=== PATIENT | male | born 1985 | race Caucasian/White ===

== ENCOUNTER 2021-10-12 01:58 | Emergency (ER) | payer BC ==
[2021-10-12] MEDS ORDERED: ACETAMINOPHEN 500 MG TAB ONE (02:27)
[2021-10-12 03:24] LABS: SARS-COV-2 RT PCR NEGATIVE (NEGATIVE)
--- NOTE | 2021-10-12 03:33 | EDPHYS ---
Physician Documentation [facility] Name: Ghassan Dumas Age: 36 yrs Sex: Male : 1985 Arrival Date: 10/12/2021 Time: 02:04 Bed 15 Private MD: ED Physician Dominick Esparza HPI: 10/12 02:46 This 36 yrs old Male presents to ER via Ambulatory with complaints of Cough, Headache. jr8 02:46 The patient or guardian reports cough, that is intermittent, described as mild. Onset: jr8 The symptoms/episode began/occurred acutely, today. Severity of symptoms: At their worst the symptoms were moderate, in the emergency department the symptoms are unchanged. Modifying factors: The symptoms are alleviated by nothing, the symptoms are aggravated by nothing. Associated signs and symptoms: Pertinent positives: fever, headache. The patient has not experienced similar symptoms in the past. The patient has not recently seen a physician. Historical: - Allergies: 02:12 No Known Allergies; lg3 - Home Meds: 02:12 trazodone 100 mg Oral tab 1 tab once daily [Active]; losartan 50 mg oral tab 1 tab once lg3 daily [Active]; - PMHx: 02:12 hypertension; Sleep apnea; lg3 - PSHx: 02:12 None; lg3 - Immunization history:: Adult Immunizations up to date, Client reports having NOT received the Covid vaccine. - Social history:: Smoking status: Patient reports the use of cigarette tobacco products, smokes one-half pack cigarettes per day, Patient uses alcohol, weekly. ROS: 02:46 Constitutional: Positive for body aches, chills, fever. jr8 02:46 Respiratory: Positive for cough, Negative for dyspnea on exertion, shortness of breath, sputum production, wheezing. 02:46 Neuro: Positive for headache. 02:46 All other systems are negative. Exam: 02:46 Constitutional: This is a well developed, well nourished patient who is awake, alert, jr8 and in no acute distress. 02:46 ENT: Nares patent. No nasal discharge, no septal abnormalities noted. Tympanic membranes are normal and external auditory canals are clear. Oropharynx with no redness, swelling, or masses, exudates, or evidence of obstruction, uvula midline. Mucous membranes moist. Neck: Trachea midline, no thyromegaly or masses palpated, and no cervical lymphadenopathy. Supple, full range of motion without nuchal rigidity, or vertebral point tenderness. No Meningismus. Respiratory: Lungs have equal breath sounds bilaterally, clear to auscultation and percussion. No rales, rhonchi or wheezes noted. No increased work of breathing, no retractions or nasal flaring. Abdomen/GI: Soft, non-tender, with normal bowel sounds. No distension or tympany. No guarding or rebound. No evidence of tenderness throughout. Back: No spinal tenderness. No costovertebral tenderness. Full range of motion. Skin: Warm, dry with normal turgor. Normal color with no rashes, no lesions, and no evidence of cellulitis. MS/ Extremity: Pulses equal, no cyanosis. Neurovascular intact. Full, normal range of motion. Neuro: Awake and alert, GCS 15, oriented to person, place, time, and situation. Cranial nerves II-XII grossly intact. Motor strength 5/5 in all extremities. Sensory grossly intact. 02:46 Cardiovascular: Rate: tachycardic, Rhythm: regular, Pulses: Pulses are 2+ in right radial artery and left radial artery. Heart sounds: normal, normal S1and S2, no S3 or S4, no murmur, no rub, no gallop, Edema: is not appreciated. Vital Signs: 02:08 BP 149 / 95; Pulse 102; Resp 18 S; Temp 102.8(O); Pulse Ox 97% on R/A; Weight 158.76 kg lg3 (R); Height 6 ft. 2 in. (187.96 cm) (R); Pain 0/10; 03:58 BP 129 / 71; Pulse 87; Resp 18 S; Temp 98.7; Pulse Ox 97% on R/A; al4 02:08 Body Mass Index 44.94 (158.76 kg, 187.96 cm) lg3 MDM: 02:20 Patient medically screened. jr8 02:46 Data reviewed: vital signs, nurses notes, lab test result(s), radiologic studies, plain jr8 films. Data interpreted: Pulse oximetry: on room air is 97 %. Interpretation: normal. Counseling: I had a detailed discussion with the patient and/or guardian regarding: the historical points, exam findings, and any diagnostic results supporting the discharge/admit diagnosis, lab results, radiology results, the need for outpatient follow up, a family practitioner, to return to the emergency department if symptoms worsen or persist or if there are any questions or concerns that arise at home. 10/12 02:19 Order name: Strep; Complete Time: : al4 10/12 02:20 Order name: COVID-19/FLU A+B (Document "Date of Onset" if Symptomatic); Complete Time: jr8 03:10/12 02:20 Order name: Chest Single View XRAY jr8 10/12 03:32 Order name: Throat Culture EDMS Administered Medications: : Drug: Tylenol 1000 mg Route: PO; al4 04:00 Follow up: Response: No adverse reaction; Temperature is decreased al4 Disposition: 06:43 Co-signature as Attending Physician, Dominick Esparza MD I agree with the assessment and bebeto plan of care. Disposition Summary: 10/12/21 03:32 Discharge Ordered Location: Home jr8 Problem: new jr8 Symptoms: have improved jr8 Condition: Stable jr8 Diagnosis - Viral infection, unspecified jr8 - Fever, unspecified jr8 Followup: jr8 - With: Private Physician - When: 1 week - Reason: Recheck today's complaints, Continuance of care, Re-evaluation by your physician Discharge Instructions: - Discharge Summary Sheet jr8 - Fever, Adult jr8 - Viral Respiratory Infection jr8 Forms: - Medication Reconciliation Form jr8 - Thank You Letter jr8 - Antibiotic Education jr8 - Prescription Opioid Use jr8 - Work release form vc1 Prescriptions: - promethazine-DM 6.25-15 mg/5 mL Oral syrup - take 5 milliliter by ORAL route every 4-6 hours as needed, not to exceed 30 mL jr8 in 24 hours; 120 milliliter; Refills: 0, Product Selection Permitted Signatures: Dispatcher [employer] EDDominick Brewster MD MD cha Roszak, Josh, PA PA jr8 Carmen Freire RN RN 3 Mendoza Espinal ny4
--- NOTE | 2021-10-12 03:33 | ER ---
Nurse's Notes [facility] Name: Ghassan Dumas Age: 36 yrs Sex: Male : 1985 Arrival Date: 10/12/2021 Time: 02:04 Bed 15 Private MD: Diagnosis: Viral infection, unspecified;Fever, unspecified Presentation: 10/12 02:08 Chief complaint: Patient states: started feeling bad yesterday. cough, headache, lg3 chills, thirst and weakness all day long that are progressively getting worse. Coronavirus screen: Client denies travel out of the [place] in the last 14 days. Client presents with at least one sign or symptom that may indicate coronavirus-19. Standard/surgical mask placed on the client. Ebola Screen: No symptoms or risks identified at this time. Initial Sepsis Screen: Does the patient meet any 2 criteria? Temp <36.0*C (96.8*F)) or > 38.3*C (100.9*F). Yes Does the patient have a suspected source of infection? No. Patient's initial sepsis screen is negative. Risk Assessment: Do you want to hurt yourself or someone else? Patient reports no desire to harm self or others. Onset of symptoms was October 11, 2021. 02:08 Method Of Arrival: Ambulatory lg3 02:08 Acuity: ROLAND 3 lg3 Triage Assessment: 02:12 Headache History: Denies prior headaches. General: Appears in no apparent distress. lg3 uncomfortable, Behavior is calm, cooperative. Pain: Complains of pain in headache Pain currently is 2 out of 10 on a pain scale. Pain began 1 day ago. Also complains of no other associated symptoms. EENT: No deficits noted. No signs and/or symptoms were reported regarding the EENT system. Neuro: No deficits noted. Level of Consciousness is awake, alert, obeys commands, Oriented to person, place, time, situation. Cardiovascular: No deficits noted. Denies chest pain, shortness of breath, Capillary refill < 3 seconds Clubbing of nail beds is absent JVD is absent Patient's skin is warm and dry. Respiratory: No deficits noted. Reports cough that is Airway is patent Trachea midline Respiratory effort is even, unlabored, Respiratory pattern is regular, symmetrical. GI: No deficits noted. No signs and/or symptoms were reported involving the gastrointestinal system. Abdomen is round non-distended. : No deficits noted. No signs and/or symptoms were reported regarding the genitourinary system. Derm: No deficits noted. No signs and/or symptoms reported regarding the dermatologic system. Skin is intact, is healthy with good turgor, Skin is dry. Musculoskeletal: No deficits noted. No signs and/or symptoms reported regarding the musculoskeletal system. Circulation, motion, and sensation intact. Range of motion: intact in all extremities. Historical: - Allergies: 02:12 No Known Allergies; lg3 - Home Meds: 02:12 trazodone 100 mg Oral tab 1 tab once daily [Active]; losartan 50 mg oral tab 1 tab once lg3 daily [Active]; - PMHx: 02:12 hypertension; Sleep apnea; lg3 - PSHx: 02:12 None; lg3 - Immunization history:: Adult Immunizations up to date, Client reports having NOT received the Covid vaccine. - Social history:: Smoking status: Patient reports the use of cigarette tobacco products, smokes one-half pack cigarettes per day, Patient uses alcohol, weekly. Screenin:15 Abuse screen: Denies threats or abuse. Denies injuries from another. Nutritional lg3 screening: No deficits noted. Tuberculosis screening: No symptoms or risk factors identified. Fall Risk None identified. Assessment: 02:29 General: Appears in no apparent distress. uncomfortable, Behavior is calm, cooperative, al4 patient states he was laying in bed and started having chills, body aches, headache, and sweats. Pain: Complains of pain in generalized Pain began 1 day ago. Neuro: Level of Consciousness is awake, alert, obeys commands, Oriented to person, place, time, situation. Cardiovascular: Capillary refill < 3 seconds Patient's skin is warm and dry. Respiratory: Airway is patent Respiratory effort is unlabored, Respiratory pattern is regular. Musculoskeletal: Circulation, motion, and sensation intact. 03:59 Reassessment: Patient and/or family updated on plan of care and expected duration. Pain al4 level reassessed. Patient is alert, oriented x 3, equal unlabored respirations, skin warm/dry/pink. Vital Signs: 02:08 BP 149 / 95; Pulse 102; Resp 18 S; Temp 102.8(O); Pulse Ox 97% on R/A; Weight 158.76 kg lg3 (R); Height 6 ft. 2 in. (187.96 cm) (R); Pain 0/10; 03:58 BP 129 / 71; Pulse 87; Resp 18 S; Temp 98.7; Pulse Ox 97% on R/A; al4 02:08 Body Mass Index 44.94 (158.76 kg, 187.96 cm) lg3 ED Course: 02:04 Patient arrived in ED. kz 02:12 Triage completed. lg3 02:12 Arm band placed on left wrist. lg3 02:20 Rogelio Castañeda PA is PHCP. jr8 02:20 Dominick Esparza MD is Attending Physician. jr8 02:27 COVID-19/FLU A+B (Document "Date of Onset" if Symptomatic) Sent. al4 02:27 Strep Sent. al4 02:30 Mendoza Espinal is Primary Nurse. al4 02:30 Bed in low position. al4 02:36 Chest Single View XRAY In Process Unspecified. EDMS 03:59 No provider procedures requiring assistance completed. Patient did not have IV access al4 during this emergency room visit. Administered Medications: 02:28 Drug: Tylenol 1000 mg Route: PO; al4 04:00 Follow up: Response: No adverse reaction; Temperature is decreased al4 Outcome: 03:32 Discharge ordered by . jr8 03:59 Discharged to home ambulatory. al4 03:59 Condition: stable 03:59 Discharge instructions given to patient, Instructed on discharge instructions, follow up and referral plans. medication usage, Demonstrated understanding of instructions, follow-up care, medications. 04:00 Patient left the ED. al4 Signatures: Dispatcher [employer] EDNC Rogelio Castañeda PA PA jr8 Carmen Freire, RN RN lg3 Mendoza Espinal al4 Grace Ordoñez k
[2021-10-12 04:15] VITALS: O2SAT 97
[2021-10-12 04:17] VITALS: BP 129/71; TEMP 98.7
--- NOTE | 2021-10-12 09:41 | RAD REPORT ---
EXAM DESCRIPTION: RAD - Chest Single View - 10/12/2021 2:34 am CLINICAL HISTORY: 36 years, Male, Cough;Fever COMPARISON: None. FINDINGS: Single view of the chest was obtained portable. No prior films are available for compariso n. The cardiomediastinal silhouette demonstrate to be unremarkable. The heart is not enlarged. Th e thoracic aorta is unremarkable. The pulmonary vasculature is normal distribution. Costophrenic angl es are sharp. No areas of consolidation or masses are seen. The rest of the soft tissue and bony structures demonstrate to be unremarkable. IMPRESSION: NO ACUTE CARDIOPULMONARY DISEASE SEEN. Electronically signed by: Joseph Durham MD 10/12/2021 2:52 AM CDT Due to temporary technical issues with the PACS/Fluency reporting system, reports are being signed by the in house radiologist without review as a courtesy to ensure prompt reporting. The interpreting r adiologist is fully responsible for the content of the report.
== END 2021-10-12 04:00 | disposition home or self-care (01) ==
LOC: ER 01:58
DX: B34.9 Viral infection, unspecified (principal); I10 Essential (primary) hypertension; F17.210 Nicotine dependence, cigarettes, uncomplicated; Z20.822 Contact with and (suspected) exposure to COVID-19
CPT/HCPCS: 87070; 87081; 0240U; 71045; 99283

== ENCOUNTER 2021-11-19 23:09 | Emergency (ER) | payer BC ==
--- OUTSIDE RECORDS SUMMARY | 2021-11-19 23:12 | XMS REPORT | Continuity of Care Document ---
:1985 Author Organization [facility] t Address [address] [place] [address] Dr. Mcmahon [address] [place] [id number] Care Team Providers Name Role Phone VEE Attending Clinician Unavailable Juancho Montemayor Attending Clinician [phone] SIM_Arturo Admitting Clinician Unavailable Payers Payer Name Policy Type Policy Number Effective Date Expiration Date Nader kilpatrick [place] [id number] 2020 00:00:00 [place] Problems This patient has no known problems. Allergies, Adverse Reactions, Alerts This patient has no known allergies or adverse reactions. Medications This patient has no known medications. Procedures This patient has no known procedures. Encounters Start End Encounter Admission Attending Care Care Encounter Source Date/Time Date/Time Type Type Clinicians Facility Department ID 2020-08-15 2020-08-15 Outpatient ERICKSON_R [facility] 1005 NPI:[id number] 11:44:00 11:44:00 [id number] 2020-08-09 2020-08-09 Outpatient ERICKSON_R [facility] 1006 NPI:[id number] 05:15:00 05:15:00 [id number] 2020-08-09 2020-08-09 Outpatient Sim, [facility] [id number] 00:00:00 00:00:00 Jerome [id number] Juancho [id number] 2020-08-05 2020-08-05 Outpatient ERICKSON_R [facility] 1006 NPI:[id number] 03:59:00 03:59:00 [id number] Results This patient has no known results.
[2021-11-20 02:55] LABS: Absolute Lymphocytes (CBC) 3.3 K/uL (0.7-4.9); Hematocrit 44.4 % (39.6-49.0); Lymphocytes % 33.9 % (15.3-44.8); MPV 7.3 fL (7.6-11.3); RBC Red Blood Cell Count 4.96 M/uL (4.33-5.43)
[2021-11-20 03:05] LABS: Bilirubin Total 0.3 mg/dL (0.2-1.0); Potassium 3.9 mmol/L (3.5-5.1); Protein, Total 7.6 g/dL (6.4-8.2)
[2021-11-20 03:37] LABS: Urine Blood Negative (Negative); Urine Glucose Negative (Negative); Urine Protein Negative (Negative); Urine Specific Gravity >=1.030 (1.005-1.030)
[2021-11-20] MEDS ORDERED: MORPHINE 4 MG/ML SYR ONE (03:49)
[2021-11-20] MEDS ORDERED: NA CHLORIDE 0.9% 1,000 ML ONE (03:49)
[2021-11-20] MEDS ORDERED: ONDANSETRON 4 MG/2 ML VIAL ONE (03:49)
--- NOTE | 2021-11-20 06:15 | ER ---
Nurse's Notes [facility] Name: Ghassan Dumas Age: 36 yrs Sex: Male : 1985 Arrival Date: 11/19/2021 Time: 23:16 Bed 13 Private MD: Diagnosis: Lower abdominal pain, unspecified;Flank Pain Presentation: 11/19 23:41 Chief complaint: Patient states: he is having left flank pain intermittently since bb Saturday which is getting worse. Coronavirus screen: At this time, the client does not indicate any symptoms associated with coronavirus-19. Ebola Screen: No symptoms or risks identified at this time. Initial Sepsis Screen: Does the patient meet any 2 criteria? No. Patient's initial sepsis screen is negative. Does the patient have a suspected source of infection? No. Patient's initial sepsis screen is negative. Risk Assessment: Do you want to hurt yourself or someone else? Patient reports no desire to harm self or others. Onset of symptoms was November 17, 2021. 23:41 Method Of Arrival: Ambulatory bb 23:41 Acuity: ROLAND 3 bb Triage Assessment: 23:42 General: Appears in no apparent distress. uncomfortable, Behavior is calm, cooperative. bb Pain: Complains of pain in left flank Pain currently is 5 out of 10 on a pain scale. Neuro: Level of Consciousness is awake, alert, obeys commands, Oriented to person, place, time, situation. Cardiovascular: Capillary refill < 3 seconds Patient's skin is warm and dry. Respiratory: Respiratory effort is even, unlabored, Respiratory pattern is regular. GI: Abdomen is non-distended, Reports left flank pain. : No signs and/or symptoms were reported regarding the genitourinary system. Derm: Skin is pink, warm \T\ dry. Musculoskeletal: Circulation, motion, and sensation intact. Historical: - Allergies: 23:42 No Known Allergies; bb - Home Meds: 23:42 losartan 50 mg Oral tab 1 tab once daily [Active]; trazodone 100 mg Oral tab 1 tab once bb daily [Active]; testosterone [Active]; - PMHx: 23:42 Hypertension; Sleep Apnea; bb - PSHx: 23:42 None; bb - Immunization history:: Client reports having NOT received the Covid vaccine. - Social history:: Smoking status: Patient reports the use of cigarette tobacco products. Screenin/09 02:09 Abuse screen: Denies threats or abuse. Denies injuries from another. Nutritional kd3 screening: No deficits noted. Tuberculosis screening: No symptoms or risk factors identified. Fall Risk None identified. Assessment: 02:10 GI: Bowel sounds present X 4 quads. Abd is soft. kd3 02:10 General: Appears in no apparent distress. Behavior is calm, cooperative. Pain: kd3 Complains of pain in right upper quadrant. Pain: Complains of pain in right lower quadrant. Neuro: Level of Consciousness is awake, alert, obeys commands, Oriented to person, place, time, situation. Cardiovascular: Patient's skin is warm and dry. 03:52 Reassessment: Patient and/or family updated on plan of care and expected duration. Pain bb level reassessed. Patient is alert, oriented x 3, equal unlabored respirations, skin warm/dry/pink. awaiting CT scan IV site intact, patent with fluids infusing. 05:13 Reassessment: Patient is alert, oriented x 3, equal unlabored respirations, skin bb warm/dry/pink. pt states morphine helped for a little while but pain is going back up now 7 or 8/10. 06:25 Reassessment: Patient is alert, oriented x 3, equal unlabored respirations, skin bb warm/dry/pink. pt verbalized understanding of and agrees to plan of care discharge instructions given pt ambulated with steady gait to exit. Vital Signs: 11/19 23:41 BP 100 / 89; Pulse 73; Resp 16 S; Temp 98.1(O); Pulse Ox 99% on R/A; Weight 154.22 kg bb (R); Height 6 ft. 3 in. (190.50 cm) (R); Pain 5/10; 11/20 02:11 BP 153 / 99; Pulse 84; Resp 19; Pulse Ox 100% on R/A; kd3 02:26 BP 120 / 78; kd3 02:40 BP 121 / 71; Pulse 82; Resp 16; Pulse Ox 99% on R/A; kd3 03:52 BP 126 / 90; Pulse 78; Resp 16 S; Pulse Ox 97% on R/A; bb 05:14 BP 108 / 64; Pulse 89; Resp 16 S; Pulse Ox 98% on R/A; Pain 8/10; bb 05:40 BP 112 / 56; Pulse 72; Resp 17; Pulse Ox 99% on R/A; kd3 06:25 BP 104 / 46; Pulse 70; Resp 16 S; Pulse Ox 97% on R/A; bb 11/19 23:41 Body Mass Index 42.50 (154.22 kg, 190.50 cm) bb ED Course: 11/19 23:16 Patient arrived in ED. kz 23:42 Triage completed. bb 23:42 Arm band placed on Patient placed in waiting room, Patient notified of wait time. bb 11/20 00:25 Inserted saline lock: 20 gauge in right antecubital area, using aseptic technique. mw2 Blood collected. 02:09 Sanjana Tinajero, RN is Primary Nurse. kd3 02:09 Patient has correct armband on for positive identification. Placed in gown. kd3 02:59 Anselmo Griffith MD is Attending Physician. 7 04:30 CT Abd/Pelvis - IV Contrast Only In Process Unspecified. EDMS 06:26 No provider procedures requiring assistance completed. IV discontinued, intact, bb bleeding controlled, No redness/swelling at site. Pressure dressing applied. Administered Medications: 03:51 Drug: NS 0.9% 1000 ml Route: IV; Rate: 1000 ml; Site: right antecubital; bb 04:40 Follow up: IV Status: Completed infusion; IV Intake: 1000ml bb 03:51 Drug: Zofran (Ondansetron) 4 mg Route: IVP; Site: right antecubital; bb 04:40 Follow up: Response: No adverse reaction bb 03:52 Drug: morphine 4 mg {Note: RASS 0.} Route: IVP; Site: right antecubital; bb 04:40 Follow up: Response: No adverse reaction; RASS: Alert and Calm (0) bb Intake: 04:40 IV: 1000ml; Total: 1000ml. bb Outcome: 06:14 Discharge ordered by . 7 06:26 Discharged to home ambulatory. bb 06:26 Condition: stable 06:26 Discharge instructions given to patient, Instructed on discharge instructions, follow up and referral plans. medication usage, Demonstrated understanding of instructions, follow-up care, medications, Prescriptions given X 1. 06:26 Patient left the ED. bb Signatures: Dispatcher [facility] Diamond Restrepo, RN RN bb Milo, Keysha mw2 Anselmo Griffith MD MD mh7 Sanjana Tinajero RN RN kd3 Grace Ordoñez
--- NOTE | 2021-11-20 06:15 | EDPHYS ---
Physician Documentation [facility] Name: Ghassan Dumas Age: 36 yrs Sex: Male : 1985 Arrival Date: 11/19/2021 Time: 23:16 Bed 13 Private MD: ED Physician Anselmo Griffith HPI: 11/20 03:30 This 36 yrs old Male presents to ER via Ambulatory with complaints of Abdominal Pain. mh7 03:30 The patient presents with abdominal pain right lower quadrant. Onset: The mh7 symptoms/episode began/occurred 3 day(s) ago. The symptoms radiate to the right flank. 03:30 Associated signs and symptoms: Pertinent negatives: nausea, vomiting, and diarrhea, mh7 anorexia, blood in stools, chest pain, constipation, diarrhea, dysuria, fever, headache, hematuria, nausea, palpitations, shortness of breath, testicular pain, vomiting, vomiting blood. 03:30 The symptoms are described as intermittent, vague, waxing/waning. Modifying factors: mh7 The symptoms are alleviated by nothing, the symptoms are aggravated by movement, touching the area. Severity of pain: At its worst the pain was moderate 3 day(s) ago, in the emergency department the pain has improved moderately. Historical: - Allergies: 11/19 23:42 No Known Allergies; bb - Home Meds: 23:42 losartan 50 mg Oral tab 1 tab once daily [Active]; trazodone 100 mg Oral tab 1 tab once bb daily [Active]; testosterone [Active]; - PMHx: 23:42 Hypertension; Sleep Apnea; bb - PSHx: 23:42 None; bb - Immunization history:: Client reports having NOT received the Covid vaccine. - Social history:: Smoking status: Patient reports the use of cigarette tobacco products. ROS: 11/20 03:30 Constitutional: Negative for fever, chills, and weight loss, Eyes: Negative for injury, mh7 pain, redness, and discharge, ENT: Negative for injury, pain, and discharge, Neck: Negative for injury, pain, and swelling, Cardiovascular: Negative for chest pain, palpitations, and edema, Respiratory: Negative for shortness of breath, cough, wheezing, and pleuritic chest pain, : Negative for injury, bleeding, discharge, and swelling, MS/Extremity: Negative for injury and deformity, Skin: Negative for injury, rash, and discoloration, Neuro: Negative for headache, weakness, numbness, tingling, and seizure, Psych: Negative for depression, anxiety, suicide ideation, homicidal ideation, and hallucinations, Allergy/Immunology: Negative for hives, rash, and allergies, Endocrine: Negative for neck swelling, polydipsia, polyuria, polyphagia, and marked weight changes, Hematologic/Lymphatic: Negative for swollen nodes, abnormal bleeding, and unusual bruising. Exam: 03:30 Head/Face: Normocephalic, atraumatic. Eyes: Pupils equal round and reactive to light, mh7 extra-ocular motions intact. Lids and lashes normal. Conjunctiva and sclera are non-icteric and not injected. Cornea within normal limits. Periorbital areas with no swelling, redness, or edema. Neck: Trachea midline, no thyromegaly or masses palpated, and no cervical lymphadenopathy. Supple, full range of motion without nuchal rigidity, or vertebral point tenderness. No Meningismus. Chest/axilla: Normal chest wall appearance and motion. Nontender with no deformity. No lesions are appreciated. Cardiovascular: Regular rate and rhythm with a normal S1 and S2. No gallops, murmurs, or rubs. Normal PMI, no JVD. No pulse deficits. Respiratory: Lungs have equal breath sounds bilaterally, clear to auscultation and percussion. No rales, rhonchi or wheezes noted. No increased work of breathing, no retractions or nasal flaring. 03:30 Skin: Warm, dry with normal turgor. Normal color with no rashes, no lesions, and no evidence of cellulitis. MS/ Extremity: Pulses equal, no cyanosis. Neurovascular intact. Full, normal range of motion. Neuro: Awake and alert, GCS 15, oriented to person, place, time, and situation. Cranial nerves II-XII grossly intact. Motor strength 5/5 in all extremities. Sensory grossly intact. Cerebellar exam normal. Normal gait. Psych: Awake, alert, with orientation to person, place and time. Behavior, mood, and affect are within normal limits. 03:30 Constitutional: The patient appears in no acute distress, alert, awake, uncomfortable. 03:30 Abdomen/GI: Inspection: obese Bowel sounds: normal, in all quadrants, Palpation: moderate abdominal tenderness, in the right lower quadrant, mass, is not appreciated, rebound tenderness, is not appreciated, voluntary guarding, is not appreciated, involuntary guarding, is not appreciated, no appreciated organomegaly, Rectal exam: the exam is deferred, because of patient request, Indicators: McBurney's point is not tender, Whitfield's sign is negative, Rovsing's sign is negative, Obturator sign is negative, Psoas sign is negative, Liver: no appreciated palpable abnormalities, Hernia: not appreciated. 03:30 Back: normal spinal alignment noted, CVA tenderness, that is mild, is noted on the right, muscle spasm, is not present. Vital Signs: 11/19 23:41 BP 100 / 89; Pulse 73; Resp 16 S; Temp 98.1(O); Pulse Ox 99% on R/A; Weight 154.22 kg bb (R); Height 6 ft. 3 in. (190.50 cm) (R); Pain 5/10; 11/20 02:11 BP 153 / 99; Pulse 84; Resp 19; Pulse Ox 100% on R/A; kd3 02:26 BP 120 / 78; kd3 02:40 BP 121 / 71; Pulse 82; Resp 16; Pulse Ox 99% on R/A; kd3 03:52 BP 126 / 90; Pulse 78; Resp 16 S; Pulse Ox 97% on R/A; bb 05:14 BP 108 / 64; Pulse 89; Resp 16 S; Pulse Ox 98% on R/A; Pain 8/10; bb 05:40 BP 112 / 56; Pulse 72; Resp 17; Pulse Ox 99% on R/A; kd3 06:25 BP 104 / 46; Pulse 70; Resp 16 S; Pulse Ox 97% on R/A; bb 11/19 23:41 Body Mass Index 42.50 (154.22 kg, 190.50 cm) bb MDM: 06:12 Differential diagnosis: appendicitis, bowel obstruction, diverticulitis, non-specific mh7 abd pain, Pyelonephritis, Ureterolithiasis, urinary tract infection, musculoskeletal pain. Data reviewed: vital signs, nurses notes, lab test result(s), CBC, electrolytes, urinalysis, radiologic studies, CT scan. Data interpreted: Pulse oximetry: on room air is 99 %. Interpretation: normal. Counseling: I had a detailed discussion with the patient and/or guardian regarding: the historical points, exam findings, and any diagnostic results supporting the discharge/admit diagnosis, lab results, radiology results, the need for outpatient follow up, to return to the emergency department if symptoms worsen or persist or if there are any questions or concerns that arise at home. Response to treatment: the patient's symptoms have resolved after treatment, the patient's blood pressure is in an acceptable range, mental status has returned to baseline, the patient no longer shows bradycardia, the patient is not short of breath, the patient is not tachycardic, the patient's pain is gone, the patient's temperature has normalized, the patient is now symptom free. 06:14 Patient medically screened. [facility] 11/20 02:17 Order name: CBC with Diff; Complete Time: 03:24 mw2 11/20 02:17 Order name: CMP; Complete Time: 03:24 mw2 11/20 02:17 Order name: Lipase; Complete Time: 03:24 mw2 11/20 03:37 Order name: Urine Dipstick-Ancillary; Complete Time: 03:39 EDMS 11/20 03:40 Order name: CT Abd/Pelvis - IV Contrast Only [facility] 11/20 02:17 Order name: IV Saline Lock; Complete Time: 02:37 mw2 11/20 02:17 Order name: Labs collected and sent; Complete Time: 02:37 mw2 11/20 02:17 Order name: Urine Dipstick-Ancillary (obtain specimen); Complete Time: 02:37 mw2 Administered Medications: 03:51 Drug: NS 0.9% 1000 ml Route: IV; Rate: 1000 ml; Site: right antecubital; bb 04:40 Follow up: IV Status: Completed infusion; IV Intake: 1000ml bb 03:51 Drug: Zofran (Ondansetron) 4 mg Route: IVP; Site: right antecubital; bb 04:40 Follow up: Response: No adverse reaction bb 03:52 Drug: morphine 4 mg {Note: RASS 0.} Route: IVP; Site: right antecubital; bb 04:40 Follow up: Response: No adverse reaction; RASS: Alert and Calm (0) bb Disposition Summary: 11/20/21 06:14 Discharge Ordered Location: Home [facility] Problem: new mh7 Symptoms: have improved mh7 Condition: Stable mh7 Diagnosis - Lower abdominal pain, unspecified [facility] - Flank Pain [facility] Followup: [facility] - With: Private Physician - When: 1 - 2 days - Reason: If symptoms return, Worsening of condition, Recheck today's complaints, Continuance of care, Re-evaluation by your physician Discharge Instructions: - Discharge Summary Sheet [facility] - Abdominal Pain, Adult, [id number] [facility] - Flank Pain, Adult, [id number] [facility] - Form - Excuse from Work, School, or Physical Activity [facility] Forms: - Work release form bb - Medication Reconciliation Form [facility] - Thank You Letter [facility] - Antibiotic Education [facility] - Prescription Opioid Use [facility] Prescriptions: - Ibuprofen 800 mg Oral Tablet - take 1 tablet by ORAL route every 8 hours As needed take with food; 15 tablet; [facility] Refills: 0, Product Selection Permitted Signatures: Dispatcher [employer] Diamond Restrepo RN RN bb Keysha Pedraza 2 Anselmo Griffith MD MD [facility]
[2021-11-20 06:38] VITALS: TEMP 98.1
[2021-11-20 06:47] VITALS: BP 104/46; O2SAT 97
--- NOTE | 2021-11-20 13:28 | RAD REPORT ---
EXAM DESCRIPTION: CT - Abdomen Pelvis W Contrast - 11/20/2021 6:45 am CLINICAL HISTORY: The patient is 36 years old and is Male; Abdominal pain, acute TECHNIQUE: Axial computed tomography images of the abdomen and pelvis with intravenous contrast. S agittal and coronal reformatted images were created and reviewed. This CT exam was performed using one or more of the following dose reduction techniques: automated exposure control, adjustment of t he mA and/or kV according to patient size, and/or use of iterative reconstruction technique. COMPARISON: No relevant prior studies available. FINDINGS: Lung bases: Unremarkable. No mass. No consolidation. ABDOMEN: Liver: Unremarkable. No mass. Gallbladder and bile ducts: Unremarkable. No calcified stones. No ductal dilation. Pancreas: Unremarkable. No mass. No ductal dilation. Spleen: Unremarkable. No splenomegaly. Adrenals: Unremarkable. No mass. Kidneys and ureters: Unremarkable. No solid mass. No hydronephrosis. Stomach and bowel: Mildly distended loop of small bowel in the lower abdomen. No mucosal thickening. PELVIS: Appendix: No findings to suggest acute appendicitis. Bladder: Unremarkable. No mass. Reproductive: Unremarkable as visualized. ABDOMEN and PELVIS: Intraperitoneal space: Unremarkable. No free air. No significant fluid collection. Bones/joints: No acute fracture. No dislocation. Soft tissues: Unremarkable. Vasculature: Unremarkable. No abdominal aortic aneurysm. Lymph nodes: Unremarkable. No enlarged lymph nodes. IMPRESSION: No acute findings in the abdomen or pelvis. Electronically signed by: Jc Urrutia MD 11/20/2021 4:57 AM CDT Due to temporary technical issues with the PACS/Fluency reporting system, reports are being signed by the in house radiologist without review as a courtesy to ensure prompt reporting. The interpreting r adiologist is fully responsible for the content of the report.
== END 2021-11-20 06:26 | disposition home or self-care (01) ==
LOC: ER 23:09
DX: R10.31 Right lower quadrant pain (principal); R10.9 Unspecified abdominal pain; I10 Essential (primary) hypertension; Z72.0 Tobacco use
CPT/HCPCS: 85025; 36415; 81003; 83690; 80053; 74177; Q9967; J7030; J2405; 96361; 96374; 96375; 99284

== ENCOUNTER 2022-04-13 14:07 | Emergency (ER) | payer BC ==
[2022-04-13 15:28] LABS: Absolute Lymphocytes (CBC) 2.2 K/uL (0.7-4.9); Hematocrit 45.8 % (39.6-49.0); Lymphocytes % 27.9 % (15.3-44.8); MCV 89.9 fL (80-100); MPV 7.5 fL (7.6-11.3); RBC Red Blood Cell Count 5.09 M/uL (4.33-5.43)
--- NOTE | 2022-04-13 15:44 | RAD REPORT ---
EXAM DESCRIPTION: RAD - Chest Single View - 04/13/2022 3:37 pm CLINICAL HISTORY: Chest pain COMPARISON: Chest Single View dated 10/12/2021 FINDINGS: Lines: None. Lungs: No evidence of edema or pneumonia. Pleural: No significant pleural effusions or pneumothorax. Cardiac: The heart size is within normal limits. Mediastinum: Within normal limits. Bones: No acute fractures. Other: None IMPRESSION: No acute cardiopulmonary disease.
[2022-04-13 15:54] LABS: BUN Blood Urea Nitrogen 13 mg/dL (7-18); Bicarbonate 27 mmol/L (21-32); Glomerular Filtration Rate 99 ml/min (=/>90); Glucose Level 112 mg/dL (74-106); Sodium Level 138 mmol/L (136-145); Troponin High Sensitivity 5.1 pg/mL (<58.9)
[2022-04-13 15:56] LABS: NT PRO-BNP < 5 pg/mL (<125)
--- NOTE | 2022-04-13 16:56 | ER ---
Nurse's Notes [facility] Name: Ghassan Dumas Age: 37 yrs Sex: Male : 1985 Arrival Date: 04/13/2022 Time: 14:11 Bed 20 Private MD: Dusty Freire Diagnosis: Chest pain, unspecified Presentation: 04/13 14:34 Chief complaint: Patient states: Pt reports chest pain-reproducible and worse with deep kb3 breathing, SOB, fatigue x3 days. Coronavirus screen: Vaccine status: Patient reports being unvaccinated. Client denies travel out of the [place] in the last 14 days. Ebola Screen: Patient negative for fever greater than or equal to 101.5 degrees Fahrenheit, and additional compatible Ebola Virus Disease symptoms Patient denies exposure to infectious person. Patient denies travel to an Ebola-affected area in the 21 days before illness onset. No symptoms or risks identified at this time. Initial Sepsis Screen: Does the patient meet any 2 criteria? No. Patient's initial sepsis screen is negative. Does the patient have a suspected source of infection? No. Patient's initial sepsis screen is negative. Risk Assessment: Do you want to hurt yourself or someone else? Patient reports no desire to harm self or others. Onset of symptoms was April 10, 2022. 14:34 Method Of Arrival: Ambulatory kb3 14:34 Acuity: ROLAND 3 kb3 Triage Assessment: 14:39 General: Appears in no apparent distress. Behavior is calm, cooperative. Pain: kb3 Complains of pain in chest Pain does not radiate. Pain currently is 5 out of 10 on a pain scale. Quality of pain is described as sharp. Cardiovascular: Reports chest pain, Heart tones present Capillary refill < 3 seconds Pulses are all present. 14:49 General: Appears in no apparent distress. uncomfortable, Behavior is cooperative, eh3 appropriate for age, anxious. Pain: Complains of pain in anterior aspect of left upper chest Pain radiates to mid-sternal area Pain currently is 8 out of 10 on a pain scale. Quality of pain is described as sharp, Pain began 2-3 days ago. Is continuous, Alleviated by rest, Aggravated by increased activity. EENT: No signs and/or symptoms were reported regarding the EENT system. Neuro: Level of Consciousness is awake, alert, obeys commands, Oriented to person, place, time, situation. Cardiovascular: Reports chest pain, Capillary refill < 3 seconds Patient's skin is warm and dry. Rhythm is sinus rhythm. Respiratory: Reports shortness of breath at rest Airway is patent Respiratory effort is even, unlabored. GI: No signs and/or symptoms were reported involving the gastrointestinal system. : No signs and/or symptoms were reported regarding the genitourinary system. Derm: No signs and/or symptoms reported regarding the dermatologic system. Musculoskeletal: No signs and/or symptoms reported regarding the musculoskeletal system. Historical: - Allergies: 14:39 No Known Allergies; kb3 - Home Meds: 14:39 losartan 50 mg Oral tab 1 tab once daily [Active]; testosterone [Active]; trazodone 100 kb3 mg Oral tab 1 tab once daily [Active]; - PMHx: 14:39 Hypertension; Sleep Apnea; kb3 - PSHx: 14:39 None; kb3 - Immunization history:: Adult Immunizations up to date, Client reports having NOT received the Covid vaccine. Last tetanus immunization: unknown. - Social history:: Smoking status: Patient reports the use of cigarette tobacco products, smokes one-half pack cigarettes per day, Reported history of juuling and/or vaping. Screenin:56 Abuse screen: Denies threats or abuse. Denies injuries from another. Nutritional eh3 screening: No deficits noted. Tuberculosis screening: No symptoms or risk factors identified. Fall Risk None identified. Assessment: 14:56 Reassessment: No changes from previously documented assessment. See triage assessment. eh3 Pain: Complains of pain in anterior aspect of left upper chest Pain radiates to mid-sternal area. 15:56 Reassessment: Patient and/or family updated on plan of care and expected duration. Pain eh3 level reassessed. Patient is alert, oriented x 3, equal unlabored respirations, skin warm/dry/pink. 17:07 Reassessment: Patient appears in no apparent distress at this time. Patient and/or ss family updated on plan of care and expected duration. Pain level reassessed. Patient states feeling better. Patient states symptoms have improved. Vital Signs: 14:34 BP 140 / 93; Pulse 79; Resp 20; Temp 98.2; Pulse Ox 100% ; Weight 108.86 kg; Height 6 kb3 ft. 3 in. (190.50 cm); Pain 5/10; 14:56 BP 131 / 70; Pulse 78; Resp 14; Pulse Ox 97% on R/A; eh3 14:34 Body Mass Index 30.00 (108.86 kg, 190.50 cm) kb3 ED Course: 14:11 Patient arrived in ED. mr 14:11 Dusty Freire MD is Private Physician. mr 14:39 Triage completed. kb3 14:39 Arm band placed on right wrist. kb3 14:40 Frances Olivo FNP-C is PHCP. kb 14:40 Kaiser Mccrary MD is Attending Physician. kb 14:49 Key Hahn, JEFFERY is Primary Nurse. eh3 14:56 Patient has correct armband on for positive identification. Placed in gown. Bed in low eh3 position. Call light in reach. Side rails up X2. Client placed on continuous cardiac and pulse oximetry monitoring. NIBP monitoring applied. engine monitor on. Door closed. Noise minimized. Lights dimmed. Warm blanket given. 14:56 Patient maintains SpO2 saturation greater than 95% on room air. eh3 15:26 Basic Metabolic Panel Sent. eh3 15:26 CBC with Diff Sent. eh3 15:26 D-Dimer Sent. eh3 15:27 Magnesium Sent. eh3 15:27 NT PRO-BNP Sent. eh3 15:27 Troponin HS Sent. eh3 15:27 Inserted saline lock: 20 gauge in right antecubital area, using aseptic technique. eh3 Blood collected. 17:07 No provider procedures requiring assistance completed. IV discontinued, intact, ss bleeding controlled, No redness/swelling at site. Administered Medications: No medications were administered Medication: 17:07 VIS not applicable for this client. ss Outcome: 16:55 Discharge ordered by . kb 17:07 Discharged to home ambulatory. ss 17:07 Condition: good 17:07 Discharge instructions given to patient, Instructed on discharge instructions, follow up and referral plans. Demonstrated understanding of instructions, follow-up care. 17:08 Patient left the ED. ss Signatures: Frances Olivo FNP-C FNP-Ivan Cindy HoodPham cuevas, RN RN Key Hahn, JEFFERY RN 3 Grace Garcia RN RN kb3 Corrections: (The following items were deleted from the chart) 14:42 14:34 Chief complaint: Patient states: Pt reports chest pain, SOB, fatigue x3 days kb3 kb3
--- NOTE | 2022-04-13 16:56 | EDPHYS ---
Physician Documentation [facility] Name: Ghassan Dumas Age: 37 yrs Sex: Male : 1985 Arrival Date: 04/13/2022 Time: 14:11 Bed 20 Private MD: Dusty Freire ED Physician Kaiser Mccrary HPI: 04/14 00:09 This 37 yrs old Male presents to ER via Ambulatory with complaints of Chest Pain, kb Shortness Of Breath, Fatigue. 00:09 The patient or guardian reports chest pain that is located primarily in the anterior kb chest wall, left. The pain does not radiate. Associated signs and symptoms: Pertinent positives: shortness of breath. The chest pain is described as sharp. Duration: The patient or guardian reports a single episode, that is still ongoing, and unchanged. Modifying factors: The symptoms are alleviated by nothing. the symptoms are aggravated by nothing. Severity of pain: At its worst the pain was moderate in the emergency department the pain is unchanged. The patient has experienced similar episodes in the past, a few times. The patient has not recently seen a physician. Pt reports left sided chest pain with shortness of breath that started 3 days ago. States he had been evaluated for same pain multiple times in the past, but nothing has been found. Last visit to cardiology one year ago. Historical: - Allergies: 04/13 14:39 No Known Allergies; kb3 - Home Meds: 14:39 losartan 50 mg Oral tab 1 tab once daily [Active]; testosterone [Active]; trazodone 100 kb3 mg Oral tab 1 tab once daily [Active]; - PMHx: 14:39 Hypertension; Sleep Apnea; kb3 - PSHx: 14:39 None; kb3 - Immunization history:: Adult Immunizations up to date, Client reports having NOT received the Covid vaccine. Last tetanus immunization: unknown. - Social history:: Smoking status: Patient reports the use of cigarette tobacco products, smokes one-half pack cigarettes per day, Reported history of juuling and/or vaping. ROS: 04/14 00:08 Constitutional: Negative for fever, chills, and weight loss. kb Cardiovascular: Positive for chest pain, Negative for edema, orthopnea, palpitations, paroxysmal nocturnal dyspnea. Respiratory: Positive for shortness of breath. All other systems are negative. Exam: 04/13 17:44 Constitutional: This is a well developed, well nourished patient who is awake, alert, kb and in no acute distress. Head/Face: Normocephalic, atraumatic. ENT: Moist Mucous membranes Cardiovascular: Regular rate and rhythm with a normal S1 and S2. No gallops, murmurs, or rubs. No pulse deficits. Respiratory: Respirations even and unlabored. No increased work of breathing. Talking in full sentences Abdomen/GI: Soft, non-tender. No distention Skin: Warm, dry with normal turgor. Normal color. MS/ Extremity: Pulses equal, no cyanosis. Neurovascular intact. Full, normal range of motion. Neuro: Awake and alert, GCS 15, oriented to person, place, time, and situation. Moves all extremities. Normal gait. Psych: Awake, alert, with orientation to person, place and time. Behavior, mood, and affect are within normal limits. ECG was reviewed by the Attending Physician. Vital Signs: 14:34 BP 140 / 93; Pulse 79; Resp 20; Temp 98.2; Pulse Ox 100% ; Weight 108.86 kg; Height 6 kb3 ft. 3 in. (190.50 cm); Pain 5/10; 14:56 BP 131 / 70; Pulse 78; Resp 14; Pulse Ox 97% on R/A; eh3 14:34 Body Mass Index 30.00 (108.86 kg, 190.50 cm) kb3 MDM: 14:50 Patient medically screened. 16:55 Data reviewed: vital signs, nurses notes. Data interpreted: Pulse oximetry: on room air kb is 97 %. Interpretation: normal. 16:55 HEART Score: History: Slightly Suspicious (0), ECG: Normal (0), Age: < or = 45 years kb (0), Risk Factors: 1 or 2 risk factors (1), [Hypertension] Troponin: < or = 1 x Normal Limit (0), Total Score = 1. 04/14 00:08 Counseling: I had a detailed discussion with the patient and/or guardian regarding: the kb historical points, exam findings, and any diagnostic results supporting the discharge/admit diagnosis, lab results, radiology results, the need for outpatient follow up, a generator worker, a family practitioner, to return to the emergency department if symptoms worsen or persist or if there are any questions or concerns that arise at home. 04/13 14:57 Order name: Basic Metabolic Panel kb 04/13 14:57 Order name: CBC with Diff kb 04/13 14:57 Order name: D-Dimer kb 04/13 14:57 Order name: Magnesium kb 04/13 14:57 Order name: NT PRO-BNP kb 04/13 14:57 Order name: Troponin HS kb 04/13 14:57 Order name: XRAY Chest (1 view) kb 04/13 15:35 Order name: CBC with Automated Diff; Complete Time: 15:37 EDMS 04/13 15:38 Order name: D-Dimer; Complete Time: 15:55 EDMS 04/13 15:44 Order name: RAD; Complete Time: 15:55 EDMS 04/13 15:56 Order name: Basic Metabolic Panel; Complete Time: 16:19 EDMS 04/13 15:56 Order name: Troponin High Sensitivity; Complete Time: 16:19 EDMS 04/13 15:56 Order name: NT PRO-BNP; Complete Time: 16:19 EDMS 04/13 15:56 Order name: Magnesium; Complete Time: 16:19 EDMS 04/13 14:57 Order name: EKG; Complete Time: 14:58 kb 04/13 14:57 Order name: Cardiac monitoring; Complete Time: 14:57 kb 04/13 14:57 Order name: EKG - Nurse/Tech; Complete Time: 15:26 kb 04/13 14:57 Order name: IV Saline Lock; Complete Time: 15:26 kb 04/13 14:57 Order name: Labs collected and sent; Complete Time: 15:26 kb 04/13 14:57 Order name: O2 Per Protocol; Complete Time: 14:58 kb 04/13 14:57 Order name: O2 Sat Monitoring; Complete Time: 14:58 kb EC/30 17:44 Rate is 80 beats/min. Rhythm is regular. QRS [place] is Normal. [place] interval is normal at kb 166 msec. QRS interval is normal at 92 msec. QT interval is normal at 424 msec. Administered Medications: No medications were administered Disposition: 19:02 Co-signature as Attending Physician, Kaiser Mccrary MD I agree with the assessment and kdr plan of care. Disposition Summary: 04/13/22 16:55 Discharge Ordered Location: Home kb Condition: Stable kb Diagnosis - Chest pain, unspecified kb Followup: kb - With: Emergency Department - When: As needed - Reason: Worsening of condition Followup: kb - With: Private Physician - When: 2 - 3 days - Reason: Recheck today's complaints, Continuance of care, Re-evaluation by your physician Discharge Instructions: - Discharge Summary Sheet kb - Nonspecific Chest Pain, Adult, [id number] kb Forms: - Medication Reconciliation Form kb - Thank You Letter kb - Antibiotic Education kb - Prescription Opioid Use kb - Work release form ss Signatures: Dispatcher [employer] EDMS Frances Olivo, KILN REMOVER-C KILN REMOVER-Kaiser Arias MD MD kdr Bradberry, Kelly, RN RN kb3
[2022-04-14 06:17] VITALS: TEMP 98.2
[2022-04-14 06:18] VITALS: BP 131/70; O2SAT 97
--- NOTE | 2022-04-16 14:17 | EKG ---
Test Date: 2022-04-13 Test Time: 14:34:28 Food And Nutrition Services Assistant: ALP MEASUREMENT RESULTS: Intervals: Rate: 80 WI: 166 QRSD: 92 QT: 368 QTc: 424 [place]: P: 36 WI: 166 QRS: 26 T: 26 INTERPRETIVE STATEMENTS: Normal sinus rhythm Normal ECG No previous ECG available for comparison Electronically Signed On 04-16-22 14:14:15 CDT by Nikolai Rubio
== END 2022-04-13 17:08 | disposition home or self-care (01) ==
LOC: ER 14:07
DX: R07.89 Other chest pain (principal); R06.02 Shortness of breath; I10 Essential (primary) hypertension; F17.210 Nicotine dependence, cigarettes, uncomplicated
CPT/HCPCS: 36415; 71045; 80048; 83735; 83880; 84484; 85025; 85379; 93005; 99284

== ENCOUNTER 2022-06-05 17:25 | Emergency (ER) | payer BC ==
[2022-06-05] MEDS ORDERED: HYDROCODONE/APAP 10/325 TAB ONE (17:56)
[2022-06-05] MEDS ORDERED: KETOROLAC 30 MG/ML INJ ONE (17:56)
[2022-06-05 17:57] LABS: Urine Blood Negative (Negative); Urine Glucose Negative (Negative); Urine Protein Negative (Negative); Urine pH 7.5 (5.0-7.0)
--- NOTE | 2022-06-05 18:35 | ER ---
Nurse's Notes [facility] Name: Ghassan Dumas Age: 37 yrs Sex: Male : 1985 Arrival Date: 06/05/2022 Time: 17:28 Bed 17 Private MD: Dusty Freire Diagnosis: Low back pain Presentation: 06/05 17:33 Chief complaint: Patient states: Left lower back pain began three days ago. Pain ld1 migrated to midback now. Woke up today and pain is horrible. Coronavirus screen: At this time, the client does not indicate any symptoms associated with coronavirus-19. Ebola Screen: No symptoms or risks identified at this time. Initial Sepsis Screen: Does the patient meet any 2 criteria? No. Patient's initial sepsis screen is negative. Does the patient have a suspected source of infection? No. Patient's initial sepsis screen is negative. Risk Assessment: Do you want to hurt yourself or someone else? Patient reports no desire to harm self or others. Onset of symptoms was June 05, 2022. 17:33 Method Of Arrival: Ambulatory ld1 17:33 Acuity: ROLAND 3 ld1 Triage Assessment: 17:34 General: Appears in no apparent distress. comfortable, Behavior is calm, cooperative, ld1 appropriate for age. Pain: Complains of pain in low back area Pain does not radiate. Pain currently is 8 out of 10 on a pain scale. Quality of pain is described as sharp, shooting, throbbing. EENT: No signs and/or symptoms were reported regarding the EENT system. Neuro: Level of Consciousness is awake, alert, obeys commands, Oriented to person, place, time, situation. Cardiovascular: Capillary refill < 3 seconds Patient's skin is warm and dry. Respiratory: Airway is patent Respiratory effort is even, unlabored. GI: Abdomen is round non-distended. : No signs and/or symptoms were reported regarding the genitourinary system. Derm: No signs and/or symptoms reported regarding the dermatologic system. Musculoskeletal: No signs and/or symptoms reported regarding the musculoskeletal system. Historical: - Allergies: 17:34 No Known Allergies; ld1 - PMHx: 17:34 Hypertension; Sleep Apnea; ld1 - PSHx: 17:34 None; ld1 - Immunization history:: Adult Immunizations up to date, Client reports having NOT received the Covid vaccine. - Social history:: Smoking status: Patient denies any tobacco usage or history of. Patient uses alcohol, occasionally. Screenin:55 Abuse screen: Denies threats or abuse. Denies injuries from another. Nutritional bp screening: No deficits noted. Tuberculosis screening: No symptoms or risk factors identified. Fall Risk None identified. Assessment: 17:40 General: SEE TRIAGE NOTE. bp 18:55 Reassessment: PT DC HOME AMBULATORY. bp Vital Signs: 17:34 BP 161 / 93; Pulse 92; Resp 18; Temp 98.3(TE); Pulse Ox 99% on R/A; Weight 158.76 kg; ld1 Height 6 ft. 3 in. (190.50 cm); Pain 9/10; 18:55 BP 151 / 85; Pulse 87; Resp 16; Pulse Ox 99% ; bp 17:34 Body Mass Index 43.75 (158.76 kg, 190.50 cm) ld1 ED Course: 17:28 Patient arrived in ED. mr 17:28 Dusty Freire MD is Private Physician. mr 17:30 [facility]C [facility] kb 17:30 Dennis Moeller MD is Attending Physician. kb 17:32 Pancho June, JEFFERY is Primary Nurse. bp 17:34 Triage completed. ld1 17:37 Arm band placed on right wrist. ld1 18:55 Patient has correct armband on for positive identification. Bed in low position. Call bp light in reach. Side rails up X2. 18:55 No provider procedures requiring assistance completed. Patient did not have IV access bp during this emergency room visit. Administered Medications: 17:55 Drug: [place] (HYDROcodone-acetaminophen) 10 mg-325 mg 1 tabs Route: PO; bp 18:57 Follow up: Response: No adverse reaction bp 17:55 Drug: Ketorolac 30 mg Route: IM; Site: right gluteus; bp 18:57 Follow up: Response: No adverse reaction bp Medication: 18:55 VIS not applicable for this client. bp Outcome: 18:34 Discharge ordered by . kb 18:55 Discharged to home ambulatory. bp 18:55 Condition: stable 18:55 Discharge instructions given to patient, Instructed on discharge instructions, follow up and referral plans. medication usage, Demonstrated understanding of instructions, follow-up care, medications, Prescriptions given X 2. 18:57 Patient left the ED. bp Signatures: Frances Olivo, FRIDA YEUNG-Cindy Sanders Brian, RN RN bp Dorina Barron RN RN ld1
--- NOTE | 2022-06-05 18:35 | EDPHYS ---
Physician Documentation [facility] Name: Ghassan Dumas Age: 37 yrs Sex: Male : 1985 Arrival Date: 06/05/2022 Time: 17:28 Bed 17 Private MD: Dusty Freire ED Physician Dennis Moeller HPI: 06/05 18:59 This 37 yrs old Male presents to ER via Ambulatory with complaints of Back Pain. kb 18:59 The patient presents with pain that is acute. The symptoms are located in the low back. kb Onset: The symptoms/episode began/occurred 5 day(s) ago. The pain does not radiate. Associated signs and symptoms: The patient has no apparent associated signs or symptoms. The problem was sustained repetitive motion at work. Modifying factors: The patient symptoms are alleviated by nothing, the patient symptoms are aggravated by movement. Severity of symptoms: At their worst the symptoms were moderate, in the emergency department the symptoms are unchanged. The patient has not experienced similar symptoms in the past. The patient has not recently seen a physician. 19:01 Pt reports pain that began in left flank area and moved to low back. States pain kb started on Saturday. REports pain with movement. States he was on different machinery all night at work for the past few nights and it makes it worse. Denies urinary symptoms. . Historical: - Allergies: 17:34 No Known Allergies; ld1 - PMHx: 17:34 Hypertension; Sleep Apnea; ld1 - PSHx: 17:34 None; ld1 - Immunization history:: Adult Immunizations up to date, Client reports having NOT received the Covid vaccine. - Social history:: Smoking status: Patient denies any tobacco usage or history of. Patient uses alcohol, occasionally. ROS: 18:58 Constitutional: Negative for fever, chills, and weight loss. kb 18:58 Back: Positive for pain at rest, pain with movement, of the low back area and sacrum. 18:58 All other systems are negative. Exam: 18:57 Constitutional: This is a well developed, well nourished patient who is awake, alert, kb and in no acute distress. Head/Face: Normocephalic, atraumatic. ENT: Moist Mucous membranes Cardiovascular: Regular rate and rhythm with a normal S1 and S2. No gallops, murmurs, or rubs. No pulse deficits. Respiratory: Respirations even and unlabored. No increased work of breathing. Talking in full sentences Abdomen/GI: Soft, non-tender. No distention Skin: Warm, dry with normal turgor. Normal color. MS/ Extremity: Pulses equal, no cyanosis. Neurovascular intact. Full, normal range of motion. Neuro: Awake and alert, GCS 15, oriented to person, place, time, and situation. Moves all extremities. Normal gait. Psych: Awake, alert, with orientation to person, place and time. Behavior, mood, and affect are within normal limits. 18:57 Back: pain, that is moderate, of the low back area and sacrum, ROM is painful, with all movement, normal spinal alignment noted. 19:19 Neuro: Orientation: is normal, Mentation: is normal, Memory: is normal, Motor: is kb normal, Sensation: is normal, Gait: is steady. Vital Signs: 17:34 BP 161 / 93; Pulse 92; Resp 18; Temp 98.3(TE); Pulse Ox 99% on R/A; Weight 158.76 kg; ld1 Height 6 ft. 3 in. (190.50 cm); Pain 9/10; 18:55 BP 151 / 85; Pulse 87; Resp 16; Pulse Ox 99% ; bp 17:34 Body Mass Index 43.75 (158.76 kg, 190.50 cm) ld1 MDM: 17:38 Patient medically screened. kb 18:57 Data reviewed: vital signs, nurses notes. Data interpreted: Pulse oximetry: on room air kb is 99 %. Interpretation: normal. Counseling: I had a detailed discussion with the patient and/or guardian regarding: the historical points, exam findings, and any diagnostic results supporting the discharge/admit diagnosis, lab results, the need for outpatient follow up, a family practitioner, to return to the emergency department if symptoms worsen or persist or if there are any questions or concerns that arise at home. 06/05 17:57 Order name: Urine Dipstick-Ancillary; Complete Time: 17:59 EDMS 06/05 17:38 Order name: Urine Dipstick-Ancillary (obtain specimen); Complete Time: 17:59 kb Administered Medications: 17:55 Drug: [place] (HYDROcodone-acetaminophen) 10 mg-325 mg 1 tabs Route: PO; bp 18:57 Follow up: Response: No adverse reaction bp 17:55 Drug: Ketorolac 30 mg Route: IM; Site: right gluteus; bp 18:57 Follow up: Response: No adverse reaction bp Disposition: 06/06 11:07 Co-signature as Attending Physician, Dennis Moeller MD I agree with the assessment and rt plan of care. Disposition Summary: 06/05/22 18:34 Discharge Ordered Location: Home kb Condition: Stable kb Diagnosis - Low back pain kb Followup: kb - With: Private Physician - When: 2 - 3 days - Reason: Recheck today's complaints, Continuance of care, Re-evaluation by your physician Followup: kb - With: Emergency Department - When: As needed - Reason: Worsening of condition Discharge Instructions: - Discharge Summary Sheet kb - Musculoskeletal Pain kb Forms: - Medication Reconciliation Form kb - Thank You Letter kb - Antibiotic Education kb - Prescription Opioid Use kb - Work release form bd Prescriptions: - Cyclobenzaprine 10 mg Oral Tablet - take 1 tablet by ORAL route every 8 hours As needed; 15 tablet; Refills: 0, kb Product Selection Permitted - Diclofenac Sodium 75 mg Oral tablet,delayed release (DR/EC) - take 1 tablet by ORAL route 2 times per day As needed; 30 tablet; Refills: 0, kb Product Selection Permitted Signatures: Frances Olivo FNP-C FNP-Pancho Ponce, JEFFERY RN bp Dorina Barron RN RN ld1 Dennis Moeller MD MD rt
[2022-06-05 19:17] VITALS: TEMP 98.3; O2SAT 99
[2022-06-05 19:19] VITALS: BP 151/85
== END 2022-06-05 18:57 | disposition home or self-care (01) ==
LOC: ER 17:25
DX: M54.50 Low back pain, unspecified (principal); I10 Essential (primary) hypertension
CPT/HCPCS: 81003; 96372; 99283

== ENCOUNTER 2022-06-13 16:39 | Emergency (ER) | payer BC ==
[2022-06-13 17:10] LABS: Urine Blood Negative (Negative); Urine Glucose Negative (Negative); Urine Protein Negative (Negative)
[2022-06-13 17:17] LABS: Absolute Lymphocytes (CBC) 1.9 K/uL (0.7-4.9); Hematocrit 44.7 % (39.6-49.0); Lymphocytes % 16.1 % (15.3-44.8); MCV 90.7 fL (80-100); MPV 7.1 fL (7.6-11.3); RBC Red Blood Cell Count 4.92 M/uL (4.33-5.43)
[2022-06-13 17:20] LABS: Urine Crystals Unidentified Few /HPF (None Seen); Urine RBC <5 /HPF (None Seen)
[2022-06-13] MEDS ORDERED: KETOROLAC 30 MG/ML INJ ONE (17:31)
[2022-06-13 17:42] LABS: Bilirubin Total 0.6 mg/dL (0.2-1.0); Protein, Total 8.2 g/dL (6.4-8.2)
--- NOTE | 2022-06-13 18:09 | RAD REPORT ---
EXAM DESCRIPTION: [facility]Stone Protocol - 06/13/2022 5:54 pm CLINICAL HISTORY: Flank pain, kidney stone suspected COMPARISON: 11/20/2021 TECHNIQUE: CT of the abdomen and pelvis was performed without contrast. All CT scans are performed using dose optimization technique as appropriate and may include automated exposure control or mA/KV adjustment according to patient size. FINDINGS: Lower chest: No acute abnormality. Liver: Hepatic steatosis. Biliary: No biliary ductal dilatation. Stomach: No significant focal abnormality. Duodenum: No significant focal abnormality. Pancreas: No significant abnormality. Spleen: No significant abnormality. Adrenal: No suspicious lesions. Kidney/ureter: No hydronephrosis. No renal calculi. Retroperitoneum: No retroperitoneal adenopathy. Vascular: No aneurysm. Bowel: Diverticulitis of the ascending colon. No perforation or abscess.. Normal appendix. Peritoneum: No ascites or free air. Bladder: Grossly unremarkable. Reproductive: No adnexal masses. Bones: No acute fracture. Other: n/a IMPRESSION: Non perforated diverticulitis of the ascending colon. No free air or abscess. No bowel o bstruction.
[2022-06-13] MEDS ORDERED: NA CHLORIDE 0.9% 0 ML IV ONE (18:42)
[2022-06-13] MEDS ORDERED: CIPROFLOXACIN 400mg IV 400 MG/200 ML BAG IV ONE (18:42)
[2022-06-13] MEDS ORDERED: METRONIDAZOLE 500mg IVPB 500 MG/100 ML BAG IV ONE (18:42)
--- NOTE | 2022-06-13 19:28 | EDPHYS ---
Physician Documentation [facility] Name: Ghassan Dumas Age: 37 yrs Sex: Male : 1985 Arrival Date: 06/13/2022 Time: 16:41 Bed 23 Private MD: ED Physician Dennis Moeller HPI: 06/13 16:58 This 37 yrs old Male presents to ER via Ambulatory with complaints of Abdominal Pain. snw 16:58 The patient presents with abdominal pain in the right upper quadrant, right lower snw quadrant. Onset: The symptoms/episode began/occurred gradually, 4 day(s) ago, and became persistent. The symptoms do not radiate. Associated signs and symptoms: Pertinent positives: flank pain. The symptoms are described as crampy. Severity of pain: At its worst the pain was moderate severe. It is unknown whether or not the patient has had similar symptoms in the past. sees Dr. Freire, pt thought he might have a kidney infection last week so was seen here in ED, urine was clear per report. Historical: - PMHx: 16:42 Hypertension; Sleep Apnea; ll1 - Immunization history:: Client reports receiving the 2nd dose of the Covid vaccine. - Social history:: Smoking status: Patient denies any tobacco usage or history of. ROS: 16:57 Eyes: Negative for injury, pain, redness, and discharge, ENT: Negative for injury, snw pain, and discharge, Neck: Negative for injury, pain, and swelling, Cardiovascular: Negative for chest pain, palpitations, and edema, Respiratory: Negative for shortness of breath, cough, wheezing, and pleuritic chest pain, : Negative for injury, bleeding, discharge, and swelling, MS/Extremity: Negative for injury and deformity, Skin: Negative for injury, rash, and discoloration, Neuro: Negative for headache, weakness, numbness, tingling, and seizure, Psych: Negative for depression, anxiety, suicide ideation, homicidal ideation, and hallucinations. 16:57 Constitutional: Positive for body aches. 16:57 Abdomen/GI: Positive for abdominal pain. 16:57 Back: Positive for decreased range of motion, pain with movement. Exam: 16:56 Constitutional: This is a well developed, well nourished patient who is awake, alert, snw and in no acute distress. Head/Face: Normocephalic, atraumatic. Eyes: Pupils equal round and reactive to light, extra-ocular motions intact. Lids and lashes normal. Conjunctiva and sclera are non-icteric and not injected. Cornea within normal limits. Periorbital areas with no swelling, redness, or edema. ENT: Nares patent. No nasal discharge, no septal abnormalities noted. Tympanic membranes are normal and external auditory canals are clear. Oropharynx with no redness, swelling, or masses, exudates, or evidence of obstruction, uvula midline. Mucous membranes moist. Neck: Trachea midline, no thyromegaly or masses palpated, and no cervical lymphadenopathy. Supple, full range of motion without nuchal rigidity, or vertebral point tenderness. No Meningismus. Chest/axilla: Normal chest wall appearance and motion. Nontender with no deformity. No lesions are appreciated. Cardiovascular: Regular rate and rhythm with a normal S1 and S2. No gallops, murmurs, or rubs. Normal PMI, no JVD. No pulse deficits. Respiratory: Lungs have equal breath sounds bilaterally, clear to auscultation and percussion. No rales, rhonchi or wheezes noted. No increased work of breathing, no retractions or nasal flaring. 16:56 Skin: Warm, dry with normal turgor. Normal color with no rashes, no lesions, and no evidence of cellulitis. MS/ Extremity: Pulses equal, no cyanosis. Neurovascular intact. Full, normal range of motion. Neuro: Awake and alert, GCS 15, oriented to person, place, time, and situation. Cranial nerves II-XII grossly intact. Motor strength 5/5 in all extremities. Sensory grossly intact. Cerebellar exam normal. Normal gait. Psych: Awake, alert, with orientation to person, place and time. Behavior, mood, and affect are within normal limits. 16:56 Abdomen/GI: Inspection: abdomen appears normal, Bowel sounds: active, all quadrants, Palpation: moderate abdominal tenderness, in the right upper quadrant and right lower quadrant. 16:56 Back: pain, that is moderate, of the left low back, ROM is painful, normal spinal alignment noted, CVA tenderness, that is mild, is noted on the right. Vital Signs: 16:42 BP 157 / 99; Pulse 107; Resp 18; Temp 100.1; Pulse Ox 97% on R/A; Weight 158.76 kg; ll1 Height 6 ft. 3 in. (190.50 cm); Pain 10/10; 17:27 BP 129 / 73; Pulse 92; Resp 16; Pulse Ox 100% on R/A; tp1 19:15 BP 109 / 81; Pulse 81; Resp 16; Pulse Ox 100% on R/A; tp1 21:02 BP 118 / 75; Pulse 70; Resp 16; Pulse Ox 99% on R/A; tp1 16:42 Body Mass Index 43.75 (158.76 kg, 190.50 cm) ll1 MDM: 16:49 Patient medically screened. snw 19:28 Data reviewed: vital signs, nurses notes. Data interpreted: Pulse oximetry: on room air snw is 97 %. Interpretation: normal. Counseling: I had a detailed discussion with the patient and/or guardian regarding: the historical points, exam findings, and any diagnostic results supporting the discharge/admit diagnosis, the need for outpatient follow up, to return to the emergency department if symptoms worsen or persist or if there are any questions or concerns that arise at home. Special discussion: Based on the history and exam findings, there is no indication for further emergent testing or inpatient evaluation. I discussed with the patient/guardian the need to see the primary care provider for further evaluation of the symptoms. 06/13 16:49 Order name: Urine Culture snw 06/13 16:49 Order name: Urine Microscopic Only; Complete Time: 17:21 snw 06/13 16:49 Order name: CBC with Diff; Complete Time: 17:20 snw 06/13 16:49 Order name: CMP; Complete Time: 17:52 snw 06/13 16:49 Order name: Lipase; Complete Time: 17:52 snw 06/13 16:49 Order name: Flu; Complete Time: 17:35 snw 06/13 16:49 Order name: Urine Dipstick-Ancillary (obtain specimen); Complete Time: 17:34 snw 06/13 16:49 Order name: IV Saline Lock; Complete Time: 17:26 snw 06/13 16:56 Order name: CT Stone Protocol; Complete Time: 18:17 snw 06/13 17:10 Order name: Urine Dipstick-Ancillary; Complete Time: 17:13 EDMS 06/13 16:49 Order name: Labs collected and sent; Complete Time: 17:26 snw Administered Medications: 17:34 Drug: Ketorolac 30 mg Route: IVP; Site: right antecubital; tp1 19:32 Follow up: Response: Pain is unchanged, physician notified tp1 19:18 Drug: Cipro (ciprofloxacin) 400 mg Volume: 200 ml; Route: IVPB; Infused Over: 60 mins; tp1 Site: right antecubital; 20:42 Follow up: Response: No adverse reaction; IV Status: Completed infusion; IV Intake: tp1 200ml 19:42 Drug: Dilaudid (HYDROmorphone) 1 mg Route: IM; Site: left deltoid; tp1 21:03 Follow up: Response: Pain is decreased tp1 20:49 Drug: Flagyl (metroNIDAZOLE) 500 mg Volume: 100 ml; Route: IVPB; Rate: 200 ml/hr; tp1 Infused Over: 30 mins; Site: left hand; 21:33 Follow up: Response: No adverse reaction; IV Status: Completed infusion; IV Intake: tp1 100ml Disposition Summary: 06/13/22 19:28 Discharge Ordered Location: Home snw Condition: Stable snw Diagnosis - Influenza due to identified novel influenza A virus snw - Diverticulitis of intestine, part unspecified, without perforation or abscess snw without bleeding - Essential (primary) hypertension snw Followup: snw - With: Emergency Department - When: As needed - Reason: Worsening of condition Followup: snw - With: Private Physician - When: 2 - 3 days - Reason: Recheck today's complaints, Continuance of care, Re-evaluation by your physician Discharge Instructions: - Discharge Summary Sheet snw - High-Fiber Diet snw - Diverticulitis snw - Hypertension, Adult snw - Influenza, Adult snw Forms: - Work release form snw - Medication Reconciliation Form snw - Thank You Letter snw - Antibiotic Education snw - Prescription Opioid Use snw Prescriptions: - Cipro 500 mg Oral Tablet - take 1 tablet by ORAL route every 12 hours for 10 days; 20 tablet; Refills: 0, snw Product Selection Permitted - Flagyl 500 mg Oral Tablet - take 1 tablet by ORAL route every 8 hours for 10 days; 30 tablet; Refills: 0, snw Product Selection Permitted - Tramadol 50 mg Oral Tablet - take 1 tablet by ORAL route every 8 hours as needed; 12 tablet; Refills: 0, snw Product Selection Permitted Addendum: 06/18/2022 04:21 Co-signature as Attending Physician, Dennis Moeller MD I agree with the assessment and r t plan of care. Signatures: Dispatcher [employer] EDMS Dora Melendez, DAVIDC VP AD SAL[employer]nw Gerry Eli RN RN ll1 Edith Dash RN RN tp1 Dennis Moeller MD MD rt Corrections: (The following items were deleted from the chart) 06/13 19:29 19:28 Special discussion: Based on the history and exam findings, there is no snw indication for further emergent testing or inpatient evaluation. I discussed with the patient/guardian the need to see the scientific aide for further evaluation of the symptoms. snw
--- NOTE | 2022-06-13 19:28 | ER ---
Nurse's Notes [facility] Name: Ghassan Dumas Age: 37 yrs Sex: Male : 1985 Arrival Date: 06/13/2022 Time: 16:41 Bed 23 Private MD: Diagnosis: Influenza due to identified novel influenza A virus;Diverticulitis of intestine, part unspecified, without perforation or abscess without bleeding;Essential (primary) hypertension Presentation: 06/13 16:42 Chief complaint: Patient states: L back/buttocks pain for 4-5 days. Stomach pain for 2 ll1 days. Coronavirus screen: Vaccine status: Patient reports being unvaccinated. Client denies travel out of the [place] in the last 14 days. At this time, the client does not indicate any symptoms associated with coronavirus-19. Ebola Screen: Patient denies travel to an Ebola-affected area in the 21 days before illness onset. Initial Sepsis Screen: Does the patient meet any 2 criteria? HR > 90 bpm. No. Patient's initial sepsis screen is negative. Does the patient have a suspected source of infection? Yes: Acute abdominal pain. Risk Assessment: Do you want to hurt yourself or someone else? Patient reports no desire to harm self or others. Onset of symptoms was June 09, 2022. 16:42 Method Of Arrival: Ambulatory ll1 16:42 Acuity: ROLAND 3 ll1 Historical: - PMHx: 16:42 Hypertension; Sleep Apnea; ll1 - Immunization history:: Client reports receiving the 2nd dose of the Covid vaccine. - Social history:: Smoking status: Patient denies any tobacco usage or history of. Screenin:37 Abuse screen: Denies threats or abuse. Denies injuries from another. Nutritional tp1 screening: No deficits noted. Tuberculosis screening: No symptoms or risk factors identified. Fall Risk None identified. Assessment: 17:00 General: Appears in no apparent distress. uncomfortable, Behavior is calm, cooperative. tp1 Pain: Complains of pain in abdomen Pain radiates to left low back Pain currently is 10 out of 10 on a pain scale. Quality of pain is described as sharp, Is intermittent. Neuro: Level of Consciousness is awake, alert, obeys commands, Oriented to person, place, time, situation. Cardiovascular: Patient's skin is warm and dry. Respiratory: Airway is patent Respiratory effort is even, unlabored. GI: Abdomen is obese, Abd is soft and non tender Patient currently denies diarrhea, nausea, vomiting. : No signs and/or symptoms were reported regarding the genitourinary system. EENT: No signs and/or symptoms were reported regarding the EENT system. Derm: Skin is pink, warm \T\ dry. Musculoskeletal: Circulation, motion, and sensation intact. 19:19 Reassessment: Patient appears in no apparent distress at this time. No changes from tp1 previously documented assessment. Patient and/or family updated on plan of care and expected duration. Pain level reassessed. Patient is alert, oriented x 3, equal unlabored respirations, skin warm/dry/pink. continues to CO ABD pain, provider notified. 19:30 Reassessment: discharge pending completion of medication administration. tp1 20:15 Reassessment: Patient appears in no apparent distress at this time. Patient and/or tp1 family updated on plan of care and expected duration. Pain level reassessed. Patient is alert, oriented x 3, equal unlabored respirations, skin warm/dry/pink. states pain has decreased. Vital Signs: 16:42 BP 157 / 99; Pulse 107; Resp 18; Temp 100.1; Pulse Ox 97% on R/A; Weight 158.76 kg; ll1 Height 6 ft. 3 in. (190.50 cm); Pain 10/10; 17:27 BP 129 / 73; Pulse 92; Resp 16; Pulse Ox 100% on R/A; tp1 19:15 BP 109 / 81; Pulse 81; Resp 16; Pulse Ox 100% on R/A; tp1 21:02 BP 118 / 75; Pulse 70; Resp 16; Pulse Ox 99% on R/A; tp1 16:42 Body Mass Index 43.75 (158.76 kg, 190.50 cm) ll1 ED Course: 16:41 Patient arrived in ED. as 16:47 Triage completed. ll1 16:47 Arm band placed on. ll1 16:48 [facility]C [facility] snw 16:48 Dennis Moeller MD is Attending Physician. snw 16:53 Edith Dash RN is Primary Nurse. tp1 17:05 Patient has correct armband on for positive identification. Bed in low position. Call tp1 light in reach. Pulse ox on. NIBP on. 17:05 Inserted saline lock: 20 gauge in right antecubital area, using aseptic technique. tp1 Blood collected. 17:05 No provider procedures requiring assistance completed. tp1 17:56 CT Stone Protocol In Process Unspecified. EDMS 20:00 Inserted saline lock: 22 gauge in left hand, using aseptic technique. IV discontinued, tp1 intact, bleeding controlled, No redness/swelling at site. Pressure dressing applied. 21:33 IV discontinued, intact, bleeding controlled, No redness/swelling at site. Pressure tp1 dressing applied. Administered Medications: 17:34 Drug: Ketorolac 30 mg Route: IVP; Site: right antecubital; tp1 19:32 Follow up: Response: Pain is unchanged, physician notified tp1 19:18 Drug: Cipro (ciprofloxacin) 400 mg Volume: 200 ml; Route: IVPB; Infused Over: 60 mins; tp1 Site: right antecubital; 20:42 Follow up: Response: No adverse reaction; IV Status: Completed infusion; IV Intake: tp1 200ml 19:42 Drug: Dilaudid (HYDROmorphone) 1 mg Route: IM; Site: left deltoid; tp1 21:03 Follow up: Response: Pain is decreased tp1 20:49 Drug: Flagyl (metroNIDAZOLE) 500 mg Volume: 100 ml; Route: IVPB; Rate: 200 ml/hr; tp1 Infused Over: 30 mins; Site: left hand; 21:33 Follow up: Response: No adverse reaction; IV Status: Completed infusion; IV Intake: tp1 100ml Medication: 17:37 VIS not applicable for this client. tp1 Intake: 20:42 IV: 200ml; Total: 200ml. tp1 21:33 IV: 100ml; Total: 300ml. tp1 Outcome: 19:28 Discharge ordered by . didier 21:33 Discharged to home ambulatory. tp1 21:33 Condition: good 21:33 Discharge instructions given to patient, Instructed on discharge instructions, follow up and referral plans. medication usage, Demonstrated understanding of instructions, follow-up care, medications, Prescriptions given X 3. 21:34 Patient left the ED. tp1 Signatures: Dispatcher [employer] Dora Riley, GAMAL-C LITHOPRESS OPERATOR-Anne Landrum Lynsay, RN RN ll1 Edith Dash, RN RN tp1
[2022-06-13] MEDS ORDERED: HYDROMORPHONE HCL 1 MG/ML INJ ONE (19:37)
[2022-06-13 21:54] VITALS: TEMP 100.1
[2022-06-13 21:57] VITALS: BP 118/75; O2SAT 99
== END 2022-06-13 21:34 | disposition home or self-care (01) ==
LOC: ER 16:39
DX: K57.32 Diverticulitis of large intestine without perforation or abscess without bleeding (principal); J10.1 Influenza due to other identified influenza virus with other respiratory manifestations; I10 Essential (primary) hypertension; Z20.822 Contact with and (suspected) exposure to COVID-19
CPT/HCPCS: 87088; 85025; 87086; 36415; 83690; 80053; 87804 ×2; 76377; 74176; 96372; 99284; J1170; J0744; 81003; 81015

== ENCOUNTER 2022-06-18 14:02 | Emergency (ER) | payer BC ==
--- NOTE | 2022-06-18 14:47 | EDPHYS ---
Physician Documentation [facility] Name: Ghassan Dumas Age: 37 yrs Sex: Male : 1985 Arrival Date: 06/18/2022 Time: 14:09 Bed IW4 Private MD: ED Physician Kaiser Mccrary HPI: 06/18 19:57 This 37 yrs old Male presents to ER via Ambulatory with complaints of Abdominal Pain, kb Weakness. 19:57 Pt states he was here last week and diagnosed with the flu and diverticulitis. States kb he couldn't get into his PCP for follow up so he came here because he needs a note to return to work. States symptoms have resolved. Severity of symptoms: At their worst the symptoms were moderate in the emergency department the symptoms have resolved. The patient has not experienced similar symptoms in the past. The patient has been recently seen at the [facility] Emergency Department, last week. Historical: - Allergies: 14:46 No Known Allergies; jl7 - Home Meds: 14:46 losartan 50 mg oral tab [Active]; jl7 - PMHx: 14:46 Hypertension; Sleep Apnea; jl7 - PSHx: 14:46 None; jl7 - Immunization history:: Client reports having NOT received the Covid vaccine. - Social history:: Smoking status: Reported history of juuling and/or vaping. ROS: 19:57 Constitutional: Negative for fever, chills, and weight loss. kb 19:57 All other systems are negative. Exam: 19:57 Constitutional: This is a well developed, well nourished patient who is awake, alert, kb and in no acute distress. Head/Face: Normocephalic, atraumatic. ENT: Moist Mucous membranes Cardiovascular: Regular rate and rhythm with a normal S1 and S2. No gallops, murmurs, or rubs. No pulse deficits. Respiratory: Respirations even and unlabored. No increased work of breathing. Talking in full sentences Abdomen/GI: Soft, non-tender. No distention Skin: Warm, dry with normal turgor. Normal color. MS/ Extremity: Pulses equal, no cyanosis. Neurovascular intact. Full, normal range of motion. Neuro: Awake and alert, GCS 15, oriented to person, place, time, and situation. Moves all extremities. Normal gait. Vital Signs: 14:45 BP 132 / 94; Pulse 98; Resp 17; Temp 98; Pulse Ox 100% ; Weight 158.76 kg; Height 6 ft. jl7 3 in. (190.50 cm); Pain 3/10; 14:45 Body Mass Index 43.75 (158.76 kg, 190.50 cm) jl7 MDM: 14:46 Patient medically screened. kb 19:57 Data reviewed: vital signs, nurses notes. Data interpreted: Pulse oximetry: on room air kb is 100 %. Interpretation: normal. Counseling: I had a detailed discussion with the patient and/or guardian regarding: the historical points, exam findings, and any diagnostic results supporting the discharge/admit diagnosis, the need for outpatient follow up, a family practitioner, to return to the emergency department if symptoms worsen or persist or if there are any questions or concerns that arise at home. Administered Medications: No medications were administered Disposition: 06/19 10:49 Co-signature as Attending Physician, Kaiser Mccrary MD I agree with the assessment and kdr plan of care. Disposition Summary: 06/18/22 14:46 Discharge Ordered Location: Home kb Condition: Stable kb Diagnosis - Encounter for issue of other medical certificate - work note kb Followup: kb - With: Emergency Department - When: As needed - Reason: Worsening of condition Followup: kb - With: Private Physician - When: 2 - 3 days - Reason: Recheck today's complaints, Continuance of care, Re-evaluation by your physician Discharge Instructions: - Discharge Summary Sheet kb Forms: - Work release form kb - Medication Reconciliation Form kb - Thank You Letter kb - Antibiotic Education kb - Prescription Opioid Use kb Signatures: Frances Olivo, GAMAL-C GAMAL-Kaiser Arias MD MD kdr Leal, Jahala, RN RN jl7
--- NOTE | 2022-06-18 14:47 | ER ---
Nurse's Notes [facility] Name: Ghassan Dumas Age: 37 yrs Sex: Male : 1985 Arrival Date: 06/18/2022 Time: 14:09 Bed IW4 Private MD: Diagnosis: Encounter for issue of other medical certificate-work note Presentation: 06/18 14:45 Chief complaint: Patient states: Tested positive for flu a week ago, feeling better, jl7 still a little weak, following up to make sure I can go back to work. Coronavirus screen: At this time, the client does not indicate any symptoms associated with coronavirus-19. Ebola Screen: No symptoms or risks identified at this time. Initial Sepsis Screen: Does the patient meet any 2 criteria? No. Patient's initial sepsis screen is negative. Does the patient have a suspected source of infection? No. Patient's initial sepsis screen is negative. Risk Assessment: Do you want to hurt yourself or someone else? Patient reports no desire to harm self or others. Onset of symptoms is unknown. 14:45 Method Of Arrival: Ambulatory 7 14:45 Acuity: ROLAND 4 jl7 Triage Assessment: 14:46 General: Appears in no apparent distress. uncomfortable, Behavior is calm, cooperative, jl7 appropriate for age. Pain: Denies pain. GI: Patient currently denies diarrhea, nausea, vomiting. Historical: - Allergies: 14:46 No Known Allergies; jl7 - Home Meds: 14:46 losartan 50 mg oral tab [Active]; jl7 - PMHx: 14:46 Hypertension; Sleep Apnea; jl7 - PSHx: 14:46 None; jl7 - Immunization history:: Client reports having NOT received the Covid vaccine. - Social history:: Smoking status: Reported history of juuling and/or vaping. Screenin:54 Abuse screen: Denies threats or abuse. Denies injuries from another. Nutritional ss screening: No deficits noted. Tuberculosis screening: Never had TB. Fall Risk None identified. Assessment: 14:44 Reassessment: BUD Daniels in triage assessing pt. jl7 14:54 General: Appears in no apparent distress. comfortable, Behavior is calm, cooperative. ss Neuro: Level of Consciousness is awake, alert, obeys commands, Oriented to person, place, time, situation. Respiratory: Airway is patent Respiratory effort is even, unlabored. Derm: Skin is pink, warm \T\ dry. normal. Vital Signs: 14:45 BP 132 / 94; Pulse 98; Resp 17; Temp 98; Pulse Ox 100% ; Weight 158.76 kg; Height 6 ft. jl7 3 in. (190.50 cm); Pain 3/10; 14:45 Body Mass Index 43.75 (158.76 kg, 190.50 cm) jl7 ED Course: 14:09 Patient arrived in ED. as 14:42 Frances [facility]C [facility]. kb 14:42 Kaiser Mccrary MD is Attending Physician. kb 14:46 Triage completed. jl7 14:46 Arm band placed on right wrist. jl7 14:54 Patient has correct armband on for positive identification. ss 14:54 No provider procedures requiring assistance completed. Patient did not have IV access ss during this emergency room visit. Administered Medications: No medications were administered Medication: 14:44 VIS not applicable for this client. jl7 Outcome: 14:46 Discharge ordered by MD. kb 14:54 Discharged to home ambulatory. ss 14:54 Condition: good 14:54 Discharge instructions given to patient, Instructed on discharge instructions, follow up and referral plans. Demonstrated understanding of instructions, follow-up care. 14:55 Patient left the ED. ss Signatures: Frances Olivo FNP-C FNP-Anne Locke Shelby, RN RN ss Candice Baires RN RN jl7
[2022-06-18 15:38] VITALS: BP 132/94; TEMP 98; O2SAT 100
== END 2022-06-18 14:55 | disposition home or self-care (01) ==
LOC: ER 14:02
DX: Z02.79 Encounter for issue of other medical certificate (principal)
CPT/HCPCS: 99281

== ENCOUNTER 2022-07-13 20:16 | Emergency (ER) | payer BC ==
[2022-07-13 20:45] LABS: Urine Blood Negative (Negative); Urine Glucose Negative (Negative); Urine Protein Negative (Negative); Urine Specific Gravity 1.025 (1.005-1.030)
[2022-07-13] MEDS ORDERED: MORPHINE 4 MG/ML SYR ONE (20:57)
[2022-07-13] MEDS ORDERED: NA CHLORIDE 0.9% 1,000 ML ONE (20:57)
[2022-07-13] MEDS ORDERED: ONDANSETRON 4 MG/2 ML VIAL ONE (20:57)
[2022-07-13] MEDS ORDERED: FAMOTIDINE 20 MG/2 ML VIAL IV ONE (20:57)
[2022-07-13 20:58] LABS: Urine Bacteria None Seen /HPF (<20); Urine Crystals Unidentified Few /HPF (None Seen); Urine RBC <5 /HPF (None Seen); Urine WBC Clump Rare /HPF (None Seen)
[2022-07-13 21:19] LABS: Absolute Lymphocytes (CBC) 2.1 K/uL (0.7-4.9); Hematocrit 43.5 % (39.6-49.0); Lymphocytes % 31.2 % (15.3-44.8); MCV 90.2 fL (80-100); MPV 7.2 fL (7.6-11.3); RBC Red Blood Cell Count 4.82 M/uL (4.33-5.43)
[2022-07-13 21:39] LABS: Albumin 4.1 g/dL (3.4-5.0); Bilirubin Total 0.3 mg/dL (0.2-1.0); Potassium 4.1 mmol/L (3.5-5.1); Protein, Total 7.9 g/dL (6.4-8.2)
[2022-07-13] MEDS ORDERED: METRONIDAZOLE 500mg IVPB 500 MG/100 ML BAG IV ONE (22:01)
[2022-07-13] MEDS ORDERED: CIPROFLOXACIN 400mg IV 400 MG/200 ML BAG IV ONE (22:01)
--- NOTE | 2022-07-13 22:13 | RAD REPORT ---
EXAM DESCRIPTION: CT - Abdomen Pelvis W Contrast - 07/13/2022 9:59 pm CLINICAL HISTORY: Abdominal pain COMPARISON: May 2022 TECHNIQUE: Computed axial tomography of the abdomen pelvis was obtained. 100 cc Isovue-300 was admin istered intravenously. Oral contrast was not requested which limits evaluation of bowel and appendix All CT scans are performed using dose optimization technique as appropriate and may include automated exposure control or mA/KV adjustment according to patient size. FINDINGS: The liver, spleen, pancreas, adrenal and kidneys appear unremarkable. Normal appendix Diverticulum stems from the cecum. There is mild stranding within the adjacent fat compatible with di verticulitis. No abscess. No free air IMPRESSION: Mild cecal diverticulitis
--- NOTE | 2022-07-13 22:27 | EDPHYS ---
Physician Documentation [facility] Name: Ghassan Dumas Age: 37 yrs Sex: Male : 1985 Arrival Date: 07/13/2022 Time: 20:20 Bed 6 Private MD: ED Physician Dominick Esparza HPI: 07/13 20:48 This 37 yrs old Male presents to ER via Ambulatory with complaints of bebeto Abdominal Pain. 20:48 The patient presents with abdominal pain in the right upper quadrant, right lower bebeto quadrant, abdominal distention in the upper abdomen, in the lower abdomen. Onset: The symptoms/episode began/occurred 5 day(s) ago. The symptoms radiate to. Associated signs and symptoms: Pertinent positives: nausea. The symptoms are described as crampy. Modifying factors: The symptoms are alleviated by remaining still, the symptoms are aggravated by movement, pressure, touching the area. Severity of pain: At its worst the pain was moderate in the emergency department the pain has resolved. The patient has experienced a previous episode, last month. Historical: - Allergies: 20:39 No Known Allergies; vc1 - Home Meds: 20:39 losartan 50 mg Oral tab [Active]; trazodone 100 mg Oral tab 1 tab nightly for Insomnia vc1 [Active]; - PMHx: 20:39 Hypertension; Sleep Apnea; Insomnia; vc1 - PSHx: 20:39 None; vc1 - Immunization history:: Client reports having NOT received the Covid vaccine. - Social history:: Smoking status: Reported history of juuling and/or vaping. Patient/guardian denies using tobacco. - Family history:: not pertinent. ROS: 20:48 Constitutional: Negative for fever, chills, and weight loss, Eyes: Negative for injury, bebeto pain, redness, and discharge, ENT: Negative for injury, pain, and discharge, Neck: Negative for injury, pain, and swelling, Cardiovascular: Negative for chest pain, palpitations, and edema, Respiratory: Negative for shortness of breath, cough, wheezing, and pleuritic chest pain, Back: Negative for injury and pain, : Negative for injury, bleeding, discharge, and swelling, MS/Extremity: Negative for injury and deformity, Skin: Negative for injury, rash, and discoloration, Neuro: Negative for headache, weakness, numbness, tingling, and seizure, Psych: Negative for depression, anxiety, suicide ideation, homicidal ideation, and hallucinations, Allergy/Immunology: Negative for hives, rash, and allergies, Endocrine: Negative for neck swelling, polydipsia, polyuria, polyphagia, and marked weight changes, Hematologic/Lymphatic: Negative for swollen nodes, abnormal bleeding, and unusual bruising. 20:48 Abdomen/GI: Positive for abdominal pain, of the right upper quadrant and right lower quadrant. Exam: 20:48 Constitutional: This is a well developed, well nourished patient who is awake, alert, bebeto and in no acute distress. Head/Face: Normocephalic, atraumatic. Eyes: Pupils equal round and reactive to light, extra-ocular motions intact. Lids and lashes normal. Conjunctiva and sclera are non-icteric and not injected. Cornea within normal limits. Periorbital areas with no swelling, redness, or edema. ENT: Nares patent. No nasal discharge, no septal abnormalities noted. Tympanic membranes are normal and external auditory canals are clear. Oropharynx with no redness, swelling, or masses, exudates, or evidence of obstruction, uvula midline. Mucous membranes moist. Neck: Trachea midline, no thyromegaly or masses palpated, and no cervical lymphadenopathy. Supple, full range of motion without nuchal rigidity, or vertebral point tenderness. No Meningismus. Chest/axilla: Normal chest wall appearance and motion. Nontender with no deformity. No lesions are appreciated. Cardiovascular: Regular rate and rhythm with a normal S1 and S2. No gallops, murmurs, or rubs. Normal PMI, no JVD. No pulse deficits. Respiratory: Lungs have equal breath sounds bilaterally, clear to auscultation and percussion. No rales, rhonchi or wheezes noted. No increased work of breathing, no retractions or nasal flaring. Back: No spinal tenderness. No costovertebral tenderness. Full range of motion. Male : Normal genitalia with no discharge or lesions. Skin: Warm, dry with normal turgor. Normal color with no rashes, no lesions, and no evidence of cellulitis. MS/ Extremity: Pulses equal, no cyanosis. Neurovascular intact. Full, normal range of motion. Neuro: Awake and alert, GCS 15, oriented to person, place, time, and situation. Cranial nerves II-XII grossly intact. Motor strength 5/5 in all extremities. Sensory grossly intact. Cerebellar exam normal. Normal gait. Psych: Awake, alert, with orientation to person, place and time. Behavior, mood, and affect are within normal limits. 20:48 Abdomen/GI: Inspection: distension, that is moderate, Bowel sounds: normal, Palpation: moderate abdominal tenderness, in the right upper quadrant and right lower quadrant, Liver: no appreciated palpable abnormalities, Hernia: not appreciated. Vital Signs: 20:37 BP 132 / 86; Pulse 86; Resp 16; Temp 97.7; Pulse Ox 100% ; Weight 154.22 kg; Height 6 vc1 ft. 3 in. (190.50 cm); Pain 3/10; 22:03 BP 130 / 87; Pulse 72; Resp 18; Pulse Ox 98% on R/A; kd3 23:05 BP 128 / 64; Pulse 76; Resp 16; Temp 98(O); Pulse Ox 99% on R/A; kd3 20:37 Body Mass Index 42.50 (154.22 kg, 190.50 cm) vc1 MDM: 20:27 Patient medically screened. bebeto 20:54 Differential diagnosis: appendicitis, bowel obstruction, cholecystitis, Cholelithiasis, bebeto gastritis, non-specific abd pain, pancreatitis, Peptic Ulcer Disease, Pyelonephritis, Ureterolithiasis, urinary tract infection. Data reviewed: vital signs, nurses notes, lab test result(s), radiologic studies. Data interpreted: environmental monitoring technician: rate is 86 beats/min, rhythm is regular, Pulse oximetry: on room air is 100 %. Counseling: I had a detailed discussion with the patient and/or guardian regarding: the historical points, exam findings, and any diagnostic results supporting the discharge/admit diagnosis, lab results, radiology results. 07/13 20:28 Order name: CBC with Diff; Complete Time: 21:38 bebeto 07/13 20:28 Order name: CMP; Complete Time: 22:23 bebeto 07/13 20:28 Order name: Lipase; Complete Time: 22:23 bebeto 07/13 20:28 Order name: Urine Microscopic Only; Complete Time: 21:38 bebeto 07/13 20:28 Order name: CT Abd/Pelvis - IV Contrast Only; Complete Time: 22:23 [facility] 07/13 20:46 Order name: Urine Dipstick-Ancillary; Complete Time: 20:56 EDMS 07/13 20:28 Order name: IV Saline Lock; Complete Time: 21:03 bebeto 07/13 20:28 Order name: Labs collected and sent; Complete Time: 21:03 bebeto 07/13 20:28 Order name: Urine Dipstick-Ancillary (obtain specimen); Complete Time: 20:48 bebeto Administered Medications: 21:03 Drug: NS 0.9% 1000 ml Route: IV; Rate: 1 bolus; Site: right antecubital; kd3 22:42 Follow up: IV Status: Completed infusion; IV Intake: 1000ml kd3 21:03 Drug: Pepcid (famotidine) 20 mg Route: IVP; Site: right antecubital; kd3 22:42 Follow up: Response: No adverse reaction kd3 21:03 Drug: Zofran (Ondansetron) 4 mg Route: IVP; Site: right antecubital; kd3 22:42 Follow up: Response: No adverse reaction; Nausea is decreased kd3 21:03 Drug: morphine 4 mg Route: IVP; Infused Over: 4 mins; Site: right antecubital; kd3 22:42 Follow up: Response: No adverse reaction; Pain is decreased kd3 22:03 Drug: Flagyl (metroNIDAZOLE) 500 mg Volume: 100 ml; Route: IVPB; Rate: 200 ml/hr; kd3 Infused Over: 30 mins; Site: right antecubital; 22:41 Follow up: IV Status: Completed infusion; IV Intake: 100ml kd3 22:41 Drug: Cipro (ciprofloxacin) 400 mg Volume: 200 ml; Route: IVPB; Infused Over: 60 mins; kd3 Site: right antecubital; 23:41 Follow up: IV Status: Completed infusion kd3 22:41 Drug: Rocephin (cefTRIAXone) 2 grams Route: IV; Rate: per protocol; Site: right kd3 antecubital; 22:41 Follow up: IV Status: Completed infusion; IV Intake: 10ml kd3 Disposition Summary: 07/13/22 22:27 Discharge Ordered Location: Home bebeto Problem: new bebeto Symptoms: have improved bebeto Condition: Stable bebeto Diagnosis - Diverticulitis of large intestine without perforation or abscess without bleeding - bebeto mild cecal - Abdominal tenderness bebeto Followup: bebeto - With: Private Physician - When: 2 - 3 days - Reason: Recheck today's complaints, Continuance of care, Re-evaluation by your physician Followup: [facility] - With: Linus Hernandez MD - When: 2 - 3 days - Reason: Recheck today's complaints, Re-evaluation by your physician Discharge Instructions: - Discharge Summary Sheet bebeto - Abdominal Pain, Adult bebeto - Diverticulitis bebeto - Diverticulitis, [id number] [facility] - Abdominal Pain, Adult, [id number] Forms: - Medication Reconciliation Form [facility] - Thank You Letter [facility] - Antibiotic Education [facility] - Prescription Opioid Use [facility] Prescriptions: - Colace 100 mg Oral Tablet - take 1 tablet by ORAL route every 12 hours; 14 tablet; Refills: 0, Product [facility] Selection Permitted - Flagyl 500 mg Oral Tablet - take 1 tablet by ORAL route every 6 hours for 10 days; 40 tablet; Refills: 0, [facility] Product Selection Permitted - Cipro 500 mg Oral Tablet - take 1 tablet by ORAL route every 12 hours for 10 days; 20 tablet; Refills: 0, [facility] Product Selection Permitted - dicyclomine 20 mg Oral Tablet - take 1 tablet by ORAL route 4 times per day; 28 tablet; Refills: 0, Product [facility] Selection Permitted Signatures: Dispatcher [employer] Dominick Minaya MD MD cha Doucette, Kyli RN RN kd3 Kori Saldana RN RN vc1
--- NOTE | 2022-07-13 22:27 | ER ---
Nurse's Notes [facility] Name: Ghassan Dumas Age: 37 yrs Sex: Male : 1985 Arrival Date: 07/13/2022 Time: 20:20 Bed 6 Private MD: Diagnosis: Diverticulitis of large intestine without perforation or abscess without bleeding-mild cecal;Abdominal tenderness Presentation: 07/13 20:37 Chief complaint: Patient states: "I started having pain in my right lower stomach about vc1 a week ago. I'm also feeling really bloated after I eat. It was coming and going but now it is more constant.". Coronavirus screen: Vaccine status: Patient reports being unvaccinated. Ebola Screen: No symptoms or risks identified at this time. Initial Sepsis Screen: Does the patient meet any 2 criteria? No. Patient's initial sepsis screen is negative. Does the patient have a suspected source of infection? No. Patient's initial sepsis screen is negative. Risk Assessment: Do you want to hurt yourself or someone else? Patient reports no desire to harm self or others. Onset of symptoms is unknown. 20:37 Method Of Arrival: Ambulatory vc1 20:37 Acuity: ROLAND 3 vc1 Triage Assessment: 20:41 General: Appears in no apparent distress. comfortable, Behavior is calm, cooperative, vc1 appropriate for age. Pain: Complains of pain in right lower quadrant Pain does not radiate. Pain currently is 3 out of 10 on a pain scale. Also complains of bloating after eating. EENT: No deficits noted. Neuro: Level of Consciousness is awake, alert, obeys commands, Oriented to person, place, time, situation, Appropriate for age. Cardiovascular: No deficits noted. Respiratory: Airway is patent Respiratory effort is even, unlabored, Respiratory pattern is regular, symmetrical. GI: Reports lower abdominal pain, bloating. : No deficits noted. No signs and/or symptoms were reported regarding the genitourinary system. Derm: No deficits noted. No signs and/or symptoms reported regarding the dermatologic system. Musculoskeletal: No deficits noted. No signs and/or symptoms reported regarding the musculoskeletal system. Historical: - Allergies: 20:39 No Known Allergies; vc1 - Home Meds: 20:39 losartan 50 mg Oral tab [Active]; trazodone 100 mg Oral tab 1 tab nightly for Insomnia vc1 [Active]; - PMHx: 20:39 Hypertension; Sleep Apnea; Insomnia; vc1 - PSHx: 20:39 None; vc1 - Immunization history:: Client reports having NOT received the Covid vaccine. - Social history:: Smoking status: Reported history of juuling and/or vaping. Patient/guardian denies using tobacco. - Family history:: not pertinent. Screenin:41 [facility] ED Fall Risk Assessment (Adult) History of falling in the last 3 months, vc1 including since admission No falls in past 3 months (0 pts) Confusion or Disorientation No (0 pts) Intoxicated or Sedated No (0 pts) Impaired Gait No (0 pts) Mobility Assist Device Used No (0 pt) Altered Elimination No (0 pt) Score/Fall Risk Level 0 - 2 = Low Risk Maintained a safe environment, Educated pt \\T\\ family on fall prevention, incl call for assistance when getting out of bed. Abuse screen: Denies threats or abuse. 20:43 Nutritional screening: No deficits noted. Tuberculosis screening: No symptoms or risk vc1 factors identified. Assessment: 22:02 General: Appears in no apparent distress. Behavior is calm, cooperative. Pain: kd3 Complains of pain in right upper quadrant and abdomen and right lower quadrant. Neuro: Level of Consciousness is awake, alert, obeys commands, Oriented to person, place, time, situation. Cardiovascular: Patient's skin is warm and dry. Respiratory: Airway is patent Trachea midline Respiratory effort is even, unlabored, Respiratory pattern is regular, symmetrical. 22:27 General: PT still being administered antibiotics. will D/C when complete . kd3 22:42 Reassessment: No changes from previously documented assessment. Patient and/or family kd3 updated on plan of care and expected duration. Pain level reassessed. Patient is alert, oriented x 3, equal unlabored respirations, skin warm/dry/pink. Patient states feeling better. Patient states symptoms have improved. 22:43 GI: Bowel sounds present X 4 quads. Abd is soft Abdomen is tender to palpation in right kd3 upper quadrant and abdomen and right lower quadrant. Vital Signs: 20:37 BP 132 / 86; Pulse 86; Resp 16; Temp 97.7; Pulse Ox 100% ; Weight 154.22 kg; Height 6 vc1 ft. 3 in. (190.50 cm); Pain 3/10; 22:03 BP 130 / 87; Pulse 72; Resp 18; Pulse Ox 98% on R/A; kd3 23:05 BP 128 / 64; Pulse 76; Resp 16; Temp 98(O); Pulse Ox 99% on R/A; kd3 20:37 Body Mass Index 42.50 (154.22 kg, 190.50 cm) vc1 ED Course: 20:20 Patient arrived in ED. ja2 20:27 Dominick Esparza MD is Attending Physician. bebeto 20:37 Sanjana Tinajero RN is Primary Nurse. kd3 20:39 Triage completed. vc1 20:41 Arm band placed on right wrist. vc1 20:42 Patient has correct armband on for positive identification. Placed in gown. Bed in low vc1 position. Call light in reach. Client placed on continuous cardiac and pulse oximetry monitoring. NIBP monitoring applied. 20:47 Urine Microscopic Only Sent. kd3 21:03 CBC with Diff Sent. kd3 21:03 CMP Sent. kd3 21:03 Lipase Sent. kd3 21:04 Inserted saline lock: 20 gauge in right antecubital area, using aseptic technique. rv1 Blood collected. 22:00 CT Abd/Pelvis - IV Contrast Only In Process Unspecified. EDMS 22:25 Linus Hernandez MD is Referral Physician. [facility] 22:47 No provider procedures requiring assistance completed. kd3 23:41 IV discontinued, intact, bleeding controlled, No redness/swelling at site. Pressure kd3 dressing applied. Administered Medications: 21:03 Drug: NS 0.9% 1000 ml Route: IV; Rate: 1 bolus; Site: right antecubital; kd3 22:42 Follow up: IV Status: Completed infusion; IV Intake: 1000ml kd3 21:03 Drug: Pepcid (famotidine) 20 mg Route: IVP; Site: right antecubital; kd3 22:42 Follow up: Response: No adverse reaction kd3 21:03 Drug: Zofran (Ondansetron) 4 mg Route: IVP; Site: right antecubital; kd3 22:42 Follow up: Response: No adverse reaction; Nausea is decreased kd3 21:03 Drug: morphine 4 mg Route: IVP; Infused Over: 4 mins; Site: right antecubital; kd3 22:42 Follow up: Response: No adverse reaction; Pain is decreased kd3 22:03 Drug: Flagyl (metroNIDAZOLE) 500 mg Volume: 100 ml; Route: IVPB; Rate: 200 ml/hr; kd3 Infused Over: 30 mins; Site: right antecubital; 22:41 Follow up: IV Status: Completed infusion; IV Intake: 100ml kd3 22:41 Drug: Cipro (ciprofloxacin) 400 mg Volume: 200 ml; Route: IVPB; Infused Over: 60 mins; kd3 Site: right antecubital; 23:41 Follow up: IV Status: Completed infusion kd3 22:41 Drug: Rocephin (cefTRIAXone) 2 grams Route: IV; Rate: per protocol; Site: right kd3 antecubital; 22:41 Follow up: IV Status: Completed infusion; IV Intake: 10ml kd3 Medication: 20:43 VIS not applicable for this client. vc1 Intake: 22:41 IV: 10ml; Total: 10ml. kd3 22:41 IV: 100ml; Total: 110ml. kd3 22:42 IV: 1000ml; Total: 1110ml. kd3 Outcome: 22:27 Discharge ordered by . bebeto 22:47 Discharged to home ambulatory. kd3 22:47 Condition: stable 22:47 Discharge instructions given to patient, Instructed on discharge instructions, follow up and referral plans. Demonstrated understanding of instructions, follow-up care, medications, Prescriptions given X 4. 23:41 Patient left the ED. kd3 Signatures: Dispatcher [employer] Dominick Minaya MD MD cha Alexander, Jessica ja2 Doucette, Kyli, RN RN kd3 Kori Saldana RN RN vc1 Monica Griffiths 1
[2022-07-13] MEDS ORDERED: CEFTRIAXONE 2000 MG/VIAL ONE (22:34)
[2022-07-14 00:15] VITALS: BP 128/64; TEMP 98; O2SAT 99
== END 2022-07-13 23:41 | disposition home or self-care (01) ==
LOC: ER 20:16
DX: K57.32 Diverticulitis of large intestine without perforation or abscess without bleeding (principal); I10 Essential (primary) hypertension
CPT/HCPCS: 96365; 96367; 96361; 85025; 36415; 83690; 80053; 74177; 96375; 99284; Q9967; J7030; J2405; J0696; J0744; 81003; 81015

== ENCOUNTER 2022-08-04 13:04 | Emergency (ER) | payer BC ==
[2022-08-04] MEDS ORDERED: NA CHLORIDE 0.9% 1,000 ML ONE (14:18)
[2022-08-04 14:20] LABS: Absolute Lymphocytes (CBC) 2.1 K/uL (0.7-4.9); Hematocrit 44.8 % (39.6-49.0); Lymphocytes % 30.6 % (15.3-44.8); MPV 7.2 fL (7.6-11.3); RBC Red Blood Cell Count 4.98 M/uL (4.33-5.43)
[2022-08-04] MEDS ORDERED: ONDANSETRON 4 MG/2 ML VIAL ONE (14:22)
[2022-08-04] MEDS ORDERED: DICYCLOMINE HCL 20 MG/2 ML AMP IM ONE (14:23)
[2022-08-04 14:37] LABS: Albumin 4.2 g/dL (3.4-5.0); Bilirubin Total 0.4 mg/dL (0.2-1.0); Protein, Total 8.1 g/dL (6.4-8.2)
[2022-08-04 14:55] LABS: Urine Blood Negative (Negative); Urine Glucose Negative (Negative); Urine Protein Negative (Negative); Urine Specific Gravity 1.015 (1.005-1.030)
[2022-08-04 15:11] LABS: Urine Bacteria None Seen /HPF (<20); Urine RBC <5 /HPF (None Seen)
--- NOTE | 2022-08-04 16:24 | RAD REPORT ---
EXAM DESCRIPTION: CTAbdomen Pelvis W Contrast - 08/04/2022 4:16 pm CLINICAL HISTORY: right sideabdomen pain COMPARISON: Abdomen Pelvis W Contrast dated 07/13/2022; Abdomen Pelvis W Contrast dated 11/20/2021 ; Stone Protocol dated 06/13/2022 TECHNIQUE: CT of the abdomen and pelvis was performed with IV contrast. All CT scans are performed using dose optimization technique as appropriate and may include automated exposure control or mA/KV adjustment according to patient size. FINDINGS: Lower chest: Circumferentially thickened distal esophagus. This likely reflects esophagiti s. Liver: Hepatic steatosis Biliary: No biliary ductal dilatation. Stomach: No significant focal abnormality. Duodenum: No significant focal abnormality. Pancreas: No significant abnormality. Spleen: No significant abnormality. Adrenal: No suspicious lesions. Kidney/ureter: No hydronephrosis. No renal calculi. Retroperitoneum: No retroperitoneal adenopathy. Vascular: No aneurysm. Bowel: No significant focal abnormality. Normal appendix. Inflammatory changes at the sacrum have res olved. Peritoneum: No ascites or free air. Bladder: Grossly unremarkable. Reproductive: No adnexal masses. Bones: No acute fracture. Other: n/a IMPRESSION: No acute intra-abdominal or pelvic finding. Normal appendix. Inflammatory changes at the cecum have resolved.
--- NOTE | 2022-08-04 18:36 | RAD REPORT ---
EXAM DESCRIPTION: US - Abdomen Exam Limited - 08/04/2022 6:29 pm CLINICAL HISTORY: ABD PAIN COMPARISON: Abdomen Pelvis W Contrast dated 08/04/2022 FINDINGS: The gallbladder demonstrates no gallstones. No pericholecystic fluid or gallbladder wall t hickening. The common bile duct is normal measuring 4 mm. The liver demonstrates no findings of intrahepatic biliary dilatation. Increased echogenicity of the liver. Fatty sparing at the gallbladder fossa. IMPRESSION: Hepatic steatosis. Negative for cholelithiasis or acute cholecystitis.
--- NOTE | 2022-08-04 18:37 | EDPHYS ---
Physician Documentation [facility] Name: Ghassan Dumas Age: 37 yrs Sex: Male : 1985 Arrival Date: 08/04/2022 Time: 13:06 Bed DX3 Private MD: ED Physician Asad Lauren HPI: 08/04 13:25 This 37 yrs old Male presents to ER via Unassigned with complaints of Abdominal Pain, cp Bloody Stools. 13:25 The patient presents with abdominal pain right side of abdomen. Onset: The cp symptoms/episode began/occurred for past several days. 13:25 Associated signs and symptoms: Pertinent positives: blood in stool when wiping with cp bowel movement this morning. 13:25 The patient has experienced similar episodes in the past, a few times, today's symptoms cp are similar, to when the patient was apparently diagnosed with diverticulitis. Historical: - Allergies: 14:08 No Known Allergies; jl7 - Home Meds: 14:08 losartan 50 mg Oral tab [Active]; trazodone 100 mg Oral tab 1 tab nightly for insomnia jl7 [Active]; - PMHx: 14:08 Hypertension; insomnia; Sleep Apnea; jl7 - PSHx: 14:08 None; jl7 - Immunization history:: Client reports having NOT received the Covid vaccine. - Social history:: Smoking status: Patient/guardian denies using tobacco. ROS: 13:30 Constitutional: Negative for body aches, chills, fever, poor PO intake. cp 13:30 Eyes: Negative for injury, pain, redness, and discharge. cp 13:30 ENT: Negative for drainage from ear(s), ear pain, sore throat, difficulty swallowing, difficulty handling secretions. 13:30 Cardiovascular: Negative for chest pain. 13:30 Respiratory: Negative for cough, shortness of breath, wheezing. 13:30 Abdomen/GI: Positive for abdominal pain, nausea, blood in stool, Negative for vomiting, diarrhea, constipation. 13:30 Back: Negative for pain at rest, pain with movement. 13:30 Neuro: Negative for altered mental status, dizziness, headache, weakness. 13:30 All other systems are negative. Exam: 13:35 Constitutional: The patient appears in no acute distress, alert, awake, cp non-diaphoretic, non-toxic, well developed, well nourished, obese. 13:35 Head/Face: Normocephalic, atraumatic. cp 13:35 Eyes: Periorbital structures: appear normal, Conjunctiva: normal, no exudate, no injection, Sclera: no appreciated abnormality, Lids and lashes: appear normal, bilaterally. 13:35 ENT: External ear(s): are unremarkable, Nose: is normal, Mouth: Lips: moist, Oral mucosa: moist, Posterior pharynx: Airway: no evidence of obstruction, patent. 13:35 Chest/axilla: Inspection: normal. 13:35 Cardiovascular: Rate: normal, Rhythm: regular. 13:35 Respiratory: the patient does not display signs of respiratory distress, Respirations: normal, no use of accessory muscles, no retractions, labored breathing, is not present, Breath sounds: are clear throughout, no decreased breath sounds, no stridor, no wheezing. 13:35 Abdomen/GI: Inspection: obese Bowel sounds: active, all quadrants, Palpation: soft, in all quadrants, mild abdominal tenderness, in the right upper quadrant and right lower quadrant, rebound tenderness, is not appreciated, involuntary guarding, is not appreciated. 13:35 Back: CVA tenderness, is absent. Vital Signs: 14:08 BP 142 / 94; Pulse 78; Resp 15; Temp 99; Pulse Ox 98% ; Weight 158.76 kg; Height 6 ft. jl7 3 in. (190.50 cm); Pain 4/10; 15:41 BP 140 / 83; Pulse 65; Resp 16; Pulse Ox 98% on R/A; vg1 14:08 Body Mass Index 43.75 (158.76 kg, 190.50 cm) jl7 MDM: 14:13 Patient medically screened. cp 18:35 Data reviewed: vital signs, nurses notes, lab test result(s), radiologic studies, CT cp scan, ultrasound. 18:35 Consideration of Admission/Observation Escalation of care including cp admission/observation considered. I considered the following discharge prescriptions or medication management in the emergency department Medications were administered in the Emergency Department. See MAR. 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 Special discussion: Based on the patient's Hx, exam, and Dx evaluation, there is no indication for emergent surgery or inpatient Tx. It is understood by the patient/guardian that if the Sx's persist or worsen they need to return immediately for re-evaluation. 08/04 13:31 Order name: CBC with Diff; Complete Time: 14:57 cp 08/04 14:58 Interpretation: Normal except: MPV 7.2. cp 08/04 13:31 Order name: CMP; Complete Time: 14:57 cp 08/04 14:58 Interpretation: Normal except: CL 108; GLUC 110; AST 56; ALT 114; GLOB 3.9. cp 08/04 13:31 Order name: Lipase; Complete Time: 14:57 cp 08/04 13:31 Order name: Urine Microscopic Only; Complete Time: 16:30 cp 08/04 14:22 Order name: CT Abd/Pelvis - PO and IV Contrast; Complete Time: 16:30 cp 08/04 16:31 Interpretation: Report reviewed. cp 08/04 14:56 Order name: Urine Dipstick-Ancillary; Complete Time: 14:57 EDMS 08/04 13:31 Order name: IV Saline Lock; Complete Time: 14:12 cp 08/04 13:31 Order name: Labs collected and sent; Complete Time: 14:12 cp 08/04 13:31 Order name: Urine Dipstick-Ancillary (obtain specimen); Complete Time: 15:04 cp 08/04 16:32 Order name: US Abdomen Limited: gallbladder; Complete Time: 18:38 cp 08/04 16:32 Order name: NPO; Complete Time: 16:39 cp Administered Medications: 14:15 Drug: NS 0.9% 1000 ml Route: IV; Rate: 1 bolus; Site: right antecubital; vg1 15:31 Follow up: IV Status: Completed infusion; IV Intake: 1000ml jl7 14:21 Drug: Zofran (Ondansetron) 4 mg Route: IVP; Site: right antecubital; vg1 15:31 Follow up: Response: No adverse reaction; Marked relief of symptoms jl7 14:26 Drug: Dicyclomine 20 mg {Note: 10 mg in Right deltoid 10 mg in Left deltoid.} Route: vg1 IM; Site: left deltoid; 15:31 Follow up: Response: No adverse reaction jl7 Disposition: 08/05 13:33 Co-signature as Attending Physician, Asad Lauren MD. rn Disposition Summary: 08/04/22 18:36 Discharge Ordered Location: Home cp Problem: new cp Symptoms: have improved cp Condition: Stable cp Diagnosis - Abdominal pain, unspecified cp Followup: cp - With: Hugo Alegria MD - When: 2 - 3 days - Reason: Recheck today's complaints Discharge Instructions: - Discharge Summary Sheet cp - Abdominal Pain, Adult cp - Form - Excuse from Work, School, or Physical Activity cp Forms: - Medication Reconciliation Form cp - Work release form aa5 - Thank You Letter cp - Antibiotic Education cp - Prescription Opioid Use cp Prescriptions: - dicyclomine 20 mg Oral Tablet - take 1 tablet by ORAL route 4 times per day; 20 tablet; Refills: 0, Product cp Selection Permitted Signatures: Dispatcher [employer] Asad Cerna MD MD rn Page, Corey, PA PA cp Leal, Jahala RN RN jl7 Delmis Araujo RN RN vg1
--- NOTE | 2022-08-04 18:37 | ER ---
Nurse's Notes [facility] Name: Ghassan Dumas Age: 37 yrs Sex: Male : 1985 Arrival Date: 08/04/2022 Time: 13:06 Bed DX3 Private MD: Diagnosis: Abdominal pain, unspecified Presentation: 08/04 14:07 Chief complaint: Patient states: Continued abdominal pain, blood in stool this morning, jl7 hx of diverticulitis. Coronavirus screen: At this time, the client does not indicate any symptoms associated with coronavirus-19. Ebola Screen: No symptoms or risks identified at this time. Initial Sepsis Screen: Does the patient meet any 2 criteria? No. Patient's initial sepsis screen is negative. Does the patient have a suspected source of infection? No. Patient's initial sepsis screen is negative. Risk Assessment: Do you want to hurt yourself or someone else? Patient reports no desire to harm self or others. Onset of symptoms is unknown. 14:07 Method Of Arrival: Ambulatory jl7 14:07 Acuity: ROLAND 3 jl7 Triage Assessment: 14:08 General: Appears in no apparent distress. uncomfortable, Behavior is calm, cooperative, jl7 appropriate for age. Pain: Complains of pain in right upper quadrant and right lower quadrant Pain currently is 4 out of 10 on a pain scale. GI: Reports diarrhea, bloody stool. Historical: - Allergies: 14:08 No Known Allergies; jl7 - Home Meds: 14:08 losartan 50 mg Oral tab [Active]; trazodone 100 mg Oral tab 1 tab nightly for insomnia jl7 [Active]; - PMHx: 14:08 Hypertension; insomnia; Sleep Apnea; jl7 - PSHx: 14:08 None; jl7 - Immunization history:: Client reports having NOT received the Covid vaccine. - Social history:: Smoking status: Patient/guardian denies using tobacco. Screenin:33 [facility] ED Fall Risk Assessment (Adult) History of falling in the last 3 months, vg1 including since admission No falls in past 3 months (0 pts) Confusion or Disorientation No (0 pts) Intoxicated or Sedated No (0 pts) Impaired Gait No (0 pts) Mobility Assist Device Used No (0 pt) Altered Elimination No (0 pt) Score/Fall Risk Level 0 - 2 = Low Risk Oriented to surroundings, Maintained a safe environment, Educated pt \T\ family on fall prevention, incl call for assistance when getting out of bed, Assessed \T\ reinforced patient's understanding of fall precautions. Abuse screen: Denies threats or abuse. Denies injuries from another. Nutritional screening: No deficits noted. Tuberculosis screening: No symptoms or risk factors identified. Assessment: 14:15 General: Appears uncomfortable, Behavior is calm, cooperative. Pain: Complains of pain vg1 in abdomen. Neuro: Level of Consciousness is awake, alert, obeys commands, Oriented to person, place, time, situation. Cardiovascular: Patient's skin is warm and dry. Respiratory: Airway is patent Respiratory effort is even, unlabored. GI: Abdomen is round non-distended, Bowel sounds present X 4 quads. Abdomen is tender to palpation in right lower quadrant Reports bloody stool, nausea. : No signs and/or symptoms were reported regarding the genitourinary system. EENT: No signs and/or symptoms were reported regarding the EENT system. Derm: Skin is pink, warm \T\ dry. Musculoskeletal: Circulation, motion, and sensation intact. 14:29 Reassessment: oral contrast completed, Denia in imagining notified. vg1 15:33 Reassessment: Patient appears in no apparent distress at this time. No changes from jl7 previously documented assessment. Patient and/or family updated on plan of care and expected duration. Pain level reassessed. Patient is alert, oriented x 3, equal unlabored respirations, skin warm/dry/pink. 18:49 Reassessment: Patient is alert, oriented x 3, equal unlabored respirations, skin aa5 warm/dry/pink. Vital Signs: 14:08 BP 142 / 94; Pulse 78; Resp 15; Temp 99; Pulse Ox 98% ; Weight 158.76 kg; Height 6 ft. jl7 3 in. (190.50 cm); Pain 4/10; 15:41 BP 140 / 83; Pulse 65; Resp 16; Pulse Ox 98% on R/A; vg1 14:08 Body Mass Index 43.75 (158.76 kg, 190.50 cm) jl7 ED Course: 13:06 Patient arrived in ED. as 13:17 Dominick Quezada PA is PHCP. cp 13:17 Asad Lauren MD is Attending Physician. cp 14:08 Triage completed. jl7 14:08 Arm band placed on right wrist. jl7 14:13 Urine Microscopic Only Sent. bc6 14:13 Lipase Sent. bc6 14:13 CMP Sent. bc6 14:13 CBC with Diff Sent. bc6 14:14 Initial lab(s) drawn, by me, sent to lab. Inserted saline lock: 20 gauge in right bc6 antecubital area, using aseptic technique. 14:33 Patient has correct armband on for positive identification. vg1 15:40 Candice Baires, RN is Primary Nurse. jl7 15:41 Delmis Araujo, RN is Primary Nurse. vg1 16:17 CT Abd/Pelvis - PO and IV Contrast In Process Unspecified. EDMS 18:30 US Abdomen Limited: gallbladder In Process Unspecified. EDMS 18:35 Hugo Alegria MD is Referral Physician. cp 18:48 IV discontinued, intact, bleeding controlled, No redness/swelling at site. Pressure aa5 dressing applied. 18:48 No provider procedures requiring assistance completed. aa5 Administered Medications: 14:15 Drug: NS 0.9% 1000 ml Route: IV; Rate: 1 bolus; Site: right antecubital; vg1 15:31 Follow up: IV Status: Completed infusion; IV Intake: 1000ml jl7 14:21 Drug: Zofran (Ondansetron) 4 mg Route: IVP; Site: right antecubital; vg1 15:31 Follow up: Response: No adverse reaction; Marked relief of symptoms jl7 14:26 Drug: Dicyclomine 20 mg {Note: 10 mg in Right deltoid 10 mg in Left deltoid.} Route: vg1 IM; Site: left deltoid; 15:31 Follow up: Response: No adverse reaction jl7 Medication: 14:34 VIS not applicable for this client. vg1 Intake: 15:31 IV: 1000ml; Total: 1000ml. jl7 Outcome: 18:36 Discharge ordered by . cp 18:50 Discharged to home ambulatory. aa5 18:50 Condition: stable 18:50 Discharge instructions given to patient, Instructed on discharge instructions, follow up and referral plans. medication usage, Demonstrated understanding of instructions, follow-up care, medications, Prescriptions given X 1. 18:51 Patient left the ED. aa5 Signatures: Dispatcher [employer] EDMS Anne Hernandezderon, Savanna, RN RN aa5 Dominick Quezada PA PA cp Leal, Jahala, RN RN jl7 Delmis Araujo RN RN vg1 Jena [email or web address]
[2022-08-04 21:36] VITALS: TEMP 99; O2SAT 98
[2022-08-04 21:37] VITALS: BP 140/83
== END 2022-08-04 18:51 | disposition home or self-care (01) ==
LOC: ER 13:04
DX: R10.11 Right upper quadrant pain (principal); R10.31 Right lower quadrant pain; I10 Essential (primary) hypertension
CPT/HCPCS: 96361; 85025; 36415; 83690; 80053; 74177; 76705; 96372; 96374; 99284; Q9967; J0500; J7030; J2405; 81003; 81015

== ENCOUNTER 2022-08-18 11:07 | Emergency (ER) | payer BC ==
[2022-08-18 11:28] LABS: Urine Blood Negative (Negative); Urine Glucose Negative (Negative); Urine Protein Negative (Negative); Urine Specific Gravity <=1.005 (1.005-1.030)
[2022-08-18 12:53] LABS: SARS-COV-2 RT PCR POSITIVE (NEGATIVE)
--- NOTE | 2022-08-18 13:06 | ER ---
Nurse's Notes [facility] Name: Ghassan Dumas Age: 37 yrs Sex: Male : 1985 Arrival Date: 08/18/2022 Time: 11:07 Bed 6 Private MD: Dusty Freire Diagnosis: Coronavirus infection, unspecified Presentation: 08/18 11:13 Chief complaint: Patient states: I was doing my colonoscopy prep , my rapid iw covid test was positive and I had to reschedule , i just feel really dehydrated , drinking Pedialyte, denies vomiting or diarrhea. Coronavirus screen: Client presents with at least one sign or symptom that may indicate coronavirus-19. Ebola Screen: Patient negative for fever greater than or equal to 101.5 degrees Fahrenheit, and additional compatible Ebola Virus Disease symptoms Patient denies exposure to infectious person. Patient denies travel to an Ebola-affected area in the 21 days before illness onset. No symptoms or risks identified at this time. Initial Sepsis Screen: Does the patient meet any 2 criteria? No. Patient's initial sepsis screen is negative. Does the patient have a suspected source of infection? No. Patient's initial sepsis screen is negative. Risk Assessment: Do you want to hurt yourself or someone else? Patient reports no desire to harm self or others. Onset of symptoms was August 18, 2022. 11:13 Method Of Arrival: Ambulatory iw 11:13 Acuity: ROLAND 3 iw Historical: - Allergies: 11:15 No Known Allergies; iw - Home Meds: 11:15 losartan 50 mg Oral tab [Active]; trazodone 100 mg Oral tab 1 tab nightly for insomnia iw [Active]; - PMHx: 11:15 Hypertension; insomnia; Sleep Apnea; iw - Immunization history:: Adult Immunizations. - Social history:: Smoking status: Patient/guardian denies using tobacco. Screenin:43 [facility] ED Fall Risk Assessment (Adult) Score/Fall Risk Level 0 - 2 = Low Risk ll1 Oriented to surroundings, Maintained a safe environment, Educated pt \T\ family on fall prevention, incl call for assistance when getting out of bed, Hourly rounding (assess needs \T\ fall precautionary measures) done. Abuse screen: Denies threats or abuse. Nutritional screening: No deficits noted. Tuberculosis screening: No symptoms or risk factors identified. Assessment: 11:42 General: Appears ill, Behavior is calm, cooperative, appropriate for age. Pain: Denies ll1 pain. Neuro: Reports weakness. Respiratory: Reports cough that is. GI: Reports feeling dehydrated. s/p colonoscopy prep. 12:14 Reassessment: No changes from previously documented assessment. Patient and/or family ll1 updated on plan of care and expected duration. Pain level reassessed. Patient is alert, oriented x 3, equal unlabored respirations, skin warm/dry/pink. given gatorade. Vital Signs: 11:16 BP 128 / 87; Pulse 74; Resp 18; Temp 97.0; Pulse Ox 99% on R/A; Weight 158.76 kg; iw Height 6 ft. 3 in. (190.50 cm); 11:16 Body Mass Index 43.75 (158.76 kg, 190.50 cm) iw ED Course: 11:07 Patient arrived in ED. am2 11:07 Dusty Freire MD is Private Physician. am2 11:13 [facility] 11:13 Asad Lauren MD is Attending Physician. [facility] 11:15 Triage completed. iw 11:15 Arm band placed on. iw 11:24 Gerry Eli, RN is Primary Nurse. ll1 11:42 COVID-19/FLU A+B Sent. ll1 11:44 Patient has correct armband on for positive identification. Bed in low position. ll1 Cardiac monitoring not applicable on this patient. 13:05 Dusty Freire MD is Referral Physician. [facility] Administered Medications: No medications were administered Medication: 11:43 VIS not applicable for this client. ll1 Outcome: 13:06 Discharge ordered by . liliana 13:21 Patient left the ED. ll1 Signatures: Shane Araujo PA PA jmm Williams, Irene, RN RN Heather Oliver [facility] Gerry Eli RN RN ll1 Corrections: (The following items were deleted from the chart) 11:17 11:16 Pulse 74bpm; Resp 18bpm; Pulse Ox 99% RA; Temp 97.0F; 158.76 kg; Height 6 ft. 3 iw in.; BMI: 43.7; iw
--- NOTE | 2022-08-18 13:06 | EDPHYS ---
Physician Documentation [facility] Name: Ghassan Dumas Age: 37 yrs Sex: Male : 1985 Arrival Date: 08/18/2022 Time: 11:07 Bed 6 Private MD: Dusty Freire ED Physician Asad Lauren HPI: 08/18 11:30 This 37 yrs old Male presents to ER via Ambulatory with complaints of jmm dehydration/covid+. 11:30 The patient or guardian reports cough. Onset: The symptoms/episode began/occurred jmm gradually, 2 day(s) ago. Modifying factors: The symptoms are alleviated by nothing. the symptoms are aggravated by nothing. Associated signs and symptoms: Pertinent positives: fever, sore throat, Pertinent negatives:. The patient has experienced similar episodes in the past. Historical: - Allergies: 11:15 No Known Allergies; iw - Home Meds: 11:15 losartan 50 mg Oral tab [Active]; trazodone 100 mg Oral tab 1 tab nightly for insomnia iw [Active]; - PMHx: 11:15 Hypertension; insomnia; Sleep Apnea; iw - Immunization history:: Adult Immunizations. - Social history:: Smoking status: Patient/guardian denies using tobacco. ROS: 11:30 Constitutional: Positive for body aches, chills, fever. jmm 11:30 ENT: Positive for sore throat. 11:30 Respiratory: Positive for cough. 11:30 All other systems are negative. Exam: 11:30 Constitutional: This is a well developed, well nourished patient who is awake, alert, jmm and in no acute distress. Head/Face: atraumatic. Eyes: EOMI, no conjunctival erythema appreciated 11:30 Neck: Trachea midline, Supple Chest/axilla: Normal chest wall appearance and motion. Cardiovascular: Regular rate and rhythm. No edema appreciated Respiratory: Normal respirations, no respiratory distress appreciated Abdomen/GI: Non distended Back: Normal ROM Skin: General appearance color normal MS/ Extremity: Moves all extremities, no obvious deformities appreciated, no edema noted to the lower extremities Neuro: Awake and alert Psych: Behavior is normal, Mood is normal, Patient is cooperative and pleasant 11:30 ENT: Posterior pharynx: erythema, that is mild. Vital Signs: 11:16 BP 128 / 87; Pulse 74; Resp 18; Temp 97.0; Pulse Ox 99% on R/A; Weight 158.76 kg; iw Height 6 ft. 3 in. (190.50 cm); 11:16 Body Mass Index 43.75 (158.76 kg, 190.50 cm) iw MDM: 11:30 Patient medically screened. [facility] 16:00 Data reviewed: vital signs, nurses notes. Counseling: I had a detailed discussion with sonja the patient and/or guardian regarding: the historical points, exam findings, and any diagnostic results supporting the discharge/admit diagnosis, lab results, the need for outpatient follow up, to return to the emergency department if symptoms worsen or persist or if there are any questions or concerns that arise at home. ED course: Patient is alert nontoxic in appearance in the ED. No signs of respiratory distress. Advised follow-up PCP otherwise given strict return precautions. Patient understood and agrees plan of care.. 08/18 11:28 Order name: Urine Dipstick-Ancillary; Complete Time: 11:31 EDMS 08/18 11:30 Order name: COVID-19/FLU A+B; Complete Time: 12:55 [facility] Administered Medications: No medications were administered Disposition: 16:58 Co-signature as Attending Physician, Asad Lauren MD I reviewed the patient's care rn provided by the Advanced Practice Provider and agree with the diagnosis and treatment plan. Disposition Summary: 08/18/22 13:06 Discharge Ordered Location: Home [facility] Condition: Stable [facility] Diagnosis - Coronavirus infection, unspecified [facility] Followup: [facility] - With: Dusty Freire MD - When: 2 - 3 days - Reason: Recheck today's complaints, Continuance of care, Re-evaluation by your physician Discharge Instructions: - Discharge Summary Sheet [facility] - COVID-19 [facility] Forms: - Medication Reconciliation Form [facility] - Thank You Letter [facility] - Antibiotic Education [facility] - Prescription Opioid Use [facility] Signatures: Dispatcher [employer] EDShane Cleaning PA PA jmm Williams, Irene, RN RN Asad Macdonald MD MD rn
[2022-08-18 13:28] VITALS: BP 128/87; TEMP 97; O2SAT 99
== END 2022-08-18 13:21 | disposition home or self-care (01) ==
LOC: ER 11:07
DX: U07.1 COVID-19 (principal); I10 Essential (primary) hypertension
CPT/HCPCS: 81003; 0240U; 99282

== ENCOUNTER 2023-01-15 16:58 | Emergency (ER) | payer BC ==
--- OUTSIDE RECORDS SUMMARY | 2023-01-15 17:01 | XMS REPORT | Continuity of Care Document ---
:1985 Author Organization [facility] t Address [address] [place] [address] Care Team Providers Name Role Phone DONNA LANIER Attending Clinician Unavailable VEE Attending Clinician Unavailable Jerome Montemayor Attending Clinician [phone] DONNA LANIER Admitting Clinician Unavailable VEE Admitting Clinician Unavailable Payers Payer Name Policy Type Policy Number Effective Date Expiration Date Nader finesse [place] [id number] 2020 00:00:00 [place] ([place] Problems Condition Condition Condition Status Onset Resolution Last Treating Co mments Source Name Details Category Date Date Treatment Clinician Date Hypertensi Hypertensi Problem Active S weeny ve ve 08-09 Communi disorder Disorder 00:: [facility] Sleep Sleep Problem Active [place] apnea Apnea 08-09 Communi 00:00: ty [facility] Clin[facility] Fatigue Fatigue Problem Active [place] 08-09 Communi 00:00: ty [facility] Tachycardi Tachycardi Problem Active S weeny a a 08-09 Communi 00:00: ty [facility] Body mass Body Mass Problem Active [place] toni index 40+ Index 40+ 1-26 Comm uni - severely - Severely 00:00: ty obese Obese 00 [facility] Pityriasis Pityriasis Problem Active S jax versicolor Versicolor 08-09 Co mmuni 00:00: ty 00 [facility] Allergies, Adverse Reactions, Alerts This patient has no known allergies or adverse reactions. Social History Smoking Status Start Date Stop Date Source Heavy Tobacco Smoker [facility] Medications Ordered Filled Start Stop Current Ordering Indication Dosage Frequency Signature Comments Components Source Medication Medication Date Date Medication? Clinician (SIG) Name Name metoprolol metoprolol No 1 Q1D metoprolol [place] succinate succinate succinate Communi ER 25 mg ER 25 mg ER 25 mg ty tablet,exte tablet,exte tablet,ext Hospita nded nded ended l release 24 release 24 release 24 Clinics hr Take 1 hr Take 1 hr Take 1 tablet tablet tablet every day every day every day by oral by oral by oral route. route. route. Vital Signs Vital Name Observation Time Observation Value Comments Source BP Diastolic 2020-08-09 00:00:00 98 mm[Hg] [facility] Height 2020-08-09 00:00:00 74 [in_i] [facility] BMI (Body Mass 2020-08-09 00:00:00 45.3 kg/m2 [facility] Index) [facility] s BP Systolic 2020-08-09 00:00:00 148 mm[Hg] [facility] Body Weight 2020-08-09 00:00:00 5648 [oz_av] [facility] Procedures This patient has no known procedures. Plan of Care Planned Activity Planned Date Details Comments Source Diagnostic Test 2020-08-09 [facility] P[facility] 00:00:00 plasma [code = Hospital Clin ics CMP, serum or plasma] Diagnostic Test 2020-08-09 CBC w/ auto diff [facility] Pending 00:00:00 [code = CBC w/ Hospital Clin ics auto diff] Diagnostic Test 2020-08-09 lipid panel, serum [facility] Pending 00:00:00 [code = lipid [facility] Clini cs panel, serum] Diagnostic Test 2020-08-09 TSH, serum or [facility] Pending 00:00:00 plasma [code = Hospital Clin ics TSH, serum or plasma] Encounters Start End Encounter Admission Attending Care Care Encounter Source Date/Time Date/Time Type Type Clinicians Facility Department ID 2022-11-26 2022-11-27 Inpatient ELVER LANIER MICKI [id number] [facility] 10:40:00 13:35:[address] [facility] [address] [facility] 2022-09-27 2022-10-26 Outpatient MARTÍN LANIERSE MICKI [id number] [facility] 14:00:00 23:59:[address] [facility] [facility] 2022-10-10 2022-10-10 Outpatient AMRYJO LANIER MICKI [id number] MHBL 06:01:00 09:03:00 OBONORUMA 2022-08-02 2022-08-02 Outpatient ERICKSON_R [facility] 1006 [place] 00:00:00 00:00:00 0119 [facility] i [facility] Clin[facility] 2022-07-17 2022-07-17 Outpatient ERICKSON_R [facility] 1006 [place] 00:00:00 00:00:00 0103 Commun i ty [facility] Clinics 2020-08-15 2020-08-15 Outpatient ERICKSON_R [facility] 1006 [place] 11:44:00 11:44:00 0201 Commun i ty [facility]osp[facility] Clinics 2020-08-09 2020-08-09 Outpatient ERICKSON_R [facility] 1006 [place] 05:15:00 05:15:00 0126 Commun i ty Hospita [facility] Clinics 2020-08-09 2020-08-09 Outpatient Rl [facility] [id number] 00:00:00 00:00:00 Jerome [id number] Juancho [id number] 2020-08-09 2020-08-09 [facility] [place] [facility] [place] 00:00:00 00:00:00 Juancho Dickerson [facility] DO[facility] [address] [facility] [address] [place] [phone] RL , Ph. [phone] 2020-08-05 2020-08-05 Outpatient VEE [facility] 1006 [place] 03:59:00 03:59:00 0122 [facility] Results This patient has no known results.
[2023-01-15] MEDS ORDERED: NA CHLORIDE 0.9% 1,000 ML ONE (17:25)
[2023-01-15 17:37] LABS: Absolute Lymphocytes (CBC) 2.1 K/uL (0.7-4.9); Lymphocytes % 35.6 % (15.3-44.8); MCV 91.3 fL (80-100); MPV 8.7 fL (7.6-11.3); RBC Red Blood Cell Count 5.04 M/uL (4.33-5.43)
[2023-01-15 18:25] LABS: Albumin 4.6 g/dL (3.4-5.0); Bilirubin Direct 0.3 mg/dL (0-0.2); Bilirubin Indirect, Calculated 0.3 mg/dL (0.2-0.8); Bilirubin Total 0.6 mg/dL (0.2-1.0); Magnesium 2.1 mg/dL (1.6-2.4); Potassium 3.9 mEq/L (3.5-5.1); Protein, Total 8.2 g/dL (6.4-8.2); Troponin High Sensitivity 5.8 pg/mL (<58.9)
--- NOTE | 2023-01-15 18:27 | RAD REPORT ---
EXAM DESCRIPTION: CT - Head Brain Wo Cont - 01/15/2023 5:59 pm CLINICAL HISTORY: NUMBNESS COMPARISON: Head Brain Wo Cont dated 11/01/2022 TECHNIQUE: Noncontrast head CT images were obtained without IV contrast. Multiplanar reformats were generated and reviewed. All CT scans are performed using dose optimization technique as appropriate and may include automated exposure control or mA/KV adjustment according to patient size. FINDINGS: No intracranial hemorrhage, mass, or edema. Midline structures are unremarkable. Normal ventricular caliber for age. Sanchez-white matter differentiation is preserved, without evidence of acute infarct. No abnormal extra- axial fluid collections. Mastoid air cells and visualized portions of the paranasal sinuses are clear. No acute bony findings. IMPRESSION: No evidence of an acute intracranial process.
--- NOTE | 2023-01-15 18:49 | EDPHYS ---
Physician Documentation [facility] Name: Ghassan Dumas Age: 37 yrs Sex: Male : 1985 Arrival Date: 01/15/2023 Time: 16:58 Bed 8 Private MD: ED Physician Dennis Moeller HPI: 01/15 20:57 This 37 yrs old Male presents to ER via EMS with complaints of Chest Pain. rt 20:57 Patient presents to the ED with a numbness and mild chest pressure to his anterior rt chest. He stated that radiated to his arm. This has significantly improved. He denies any face, other numbness, denies any focal weakness. Denies other acute complaints at this time. Symptoms are mild in severity, no other aggravating or alleviating factors.. Historical: - Allergies: 17:10 No Known Allergies; vg1 - Home Meds: 17:10 None [Active]; vg1 - PMHx: 17:10 Hypertension; insomnia; Sleep Apnea; vg1 - PSHx: 17:10 Gastric Sleeve; vg1 - Immunization history:: Adult Immunizations unknown. - Social history:: Smoking status: Patient reports the use of cigarette tobacco products. - Family history:: not pertinent. ROS: 20:57 Constitutional: Negative for fever, chills, and weight loss, Eyes: Negative for injury, rt pain, redness, and discharge, Respiratory: Negative for shortness of breath, cough, wheezing, and pleuritic chest pain, Abdomen/GI: Negative for abdominal pain, nausea, vomiting, diarrhea, and constipation, MS/Extremity: Negative for injury and deformity, Skin: Negative for injury, rash, and discoloration, Psych: Negative for depression, anxiety, suicide ideation, homicidal ideation, and hallucinations. 20:57 Cardiovascular: Positive for chest pain, Negative for edema. 20:57 Neuro: Positive for numbness, Negative for altered mental status. Exam: 20:57 Constitutional: This is a well developed, well nourished patient who is awake, alert, rt and in no acute distress. Head/Face: Normocephalic, atraumatic. Chest/axilla: Normal chest wall appearance and motion. Nontender with no deformity. No lesions are appreciated. Cardiovascular: Regular rate and rhythm with a normal S1 and S2. No gallops, murmurs, or rubs. Normal PMI, no JVD. No pulse deficits. Respiratory: Lungs have equal breath sounds bilaterally, clear to auscultation and percussion. No rales, rhonchi or wheezes noted. No increased work of breathing, no retractions or nasal flaring. Abdomen/GI: Soft, non-tender, with normal bowel sounds. No distension or tympany. No guarding or rebound. No evidence of tenderness throughout. Skin: Warm, dry with normal turgor. Normal color with no rashes, no lesions, and no evidence of cellulitis. MS/ Extremity: Pulses equal, no cyanosis. Neurovascular intact. Full, normal range of motion. Psych: Awake, alert, with orientation to person, place and time. Behavior, mood, and affect are within normal limits. 20:57 ECG was reviewed by the Attending Physician. 20:57 Neuro: Speech normal, cranial nerves II through XII intact, strength and sensation intact in upper and lower extremities, no ataxia [id number].. Vital Signs: 17:06 BP 146 / 89; Pulse 90; Resp 16; Pulse Ox 100% on R/A; vg1 17:08 Weight 131.09 kg; Height 6 ft. 2 in. ; vg1 18:16 BP 124 / 79; Pulse 74; Resp 16; Pulse Ox 100% on R/A; mb9 17:08 Body Mass Index 37.11 (131.09 kg, 187.96 cm) vg1 MDM: 17:06 Patient medically screened. snw 20:57 Differential diagnosis: CVA, paresthesia, acute coronary syndrome, electrolyte rt disturbance. HEART Score: History: Slightly Suspicious (0), ECG: Normal (0), Age: < or = 45 years (0), Risk Factors: 1 or 2 risk factors (1), Troponin: < or = 1 x Normal Limit (0), Total Score = 1. Data reviewed: vital signs, nurses notes, lab test result(s), EKG, radiologic studies. Consideration of Admission/Observation Escalation of care including admission/observation considered. Symptoms are very atypical of an acute CVA, patient not likely to benefit from admission for TIA work-up. MRI is not indicated due to very low likelihood of there being a CVA as well as completely normal work-up otherwise except for elevation of LFTs which is chronic and known to the patient.. Independent interpretation of the following test(s) in the Emergency Department CT Scan: My interpretation is No hemorrhage seen on interpretation of CT scan images. Care significantly affected by the following chronic conditions: Hypertension. Counseling: I had a detailed discussion with the patient and/or guardian regarding: the historical points, exam findings, and any diagnostic results supporting the discharge/admit diagnosis, lab results, radiology results, the need for outpatient follow up. Response to treatment: the patient's symptoms have resolved after treatment. 01/15 17:11 Order name: Basic Metabolic Panel; Complete Time: 18:31 rt 01/15 17:11 Order name: CBC with Diff; Complete Time: 18:06 rt 01/15 17:11 Order name: LFT's; Complete Time: 18:31 rt 01/15 17:11 Order name: Magnesium; Complete Time: 18:31 rt 01/15 17:11 Order name: Troponin HS; Complete Time: 18:31 rt 01/15 17:11 Order name: CT Head Brain wo Cont; Complete Time: 18:31 rt 01/15 17:11 Order name: EKG; Complete Time: 17:12 rt 01/15 17:11 Order name: Cardiac monitoring; Complete Time: 17:26 rt 01/15 17:11 Order name: EKG - Nurse/Tech; Complete Time: 17:26 rt 01/15 17:11 Order name: IV Saline Lock; Complete Time: 17:16 rt 01/15 17:11 Order name: Labs collected and sent; Complete Time: 17:16 rt 01/15 17:11 Order name: O2 Per Protocol; Complete Time: 17:16 rt 01/15 17:11 Order name: O2 Sat Monitoring; Complete Time: 17:16 rt EC:57 Rate is 75 beats/min. Rhythm is regular, Normal Sinus Rhythm with No ectopy. QRS Mcgregor rt is Normal. MA interval is normal. QRS interval is normal. QT interval is normal. No Q waves. T waves are Normal. No ST changes noted. Interpreted by me. Administered Medications: 17:20 Drug: NS 0.9% IV 1000 ml Route: IV; Rate: 1 bolus; Site: left antecubital; vg1 19:00 Follow up: IV Status: Completed infusion; IV Intake: 1000ml vg1 Disposition Summary: 01/15/23 18:48 Discharge Ordered Location: Home rt Problem: new rt Symptoms: are resolved rt Condition: Stable rt Diagnosis - Paresthesia of skin rt Followup: rt - With: Private Physician - When: 2 - 3 days - Reason: Discharge Instructions: - Discharge Summary Sheet rt - Paresthesia rt Forms: - Work release form rt - Medication Reconciliation Form rt - Thank You Letter rt - Antibiotic Education rt - Prescription Opioid Use rt - [email or web address] rt Signatures: Dispatcher [employer] Dora Riley, GAMAL-C RUG MEASURER-Delmis Bernstein, RN RN vg1 Dennis Moeller MD MD rt
--- NOTE | 2023-01-15 18:49 | ER ---
Nurse's Notes [facility] Name: Ghassan Dumas Age: 37 yrs Sex: Male : 1985 Arrival Date: 01/15/2023 Time: 16:58 Bed 8 Private MD: Diagnosis: Paresthesia of skin Presentation: 01/15 17:08 Chief complaint: EMS states: Toned out for numbness from abdomen radiating to chest and vg1 left arm. Coronavirus screen: At this time, the client does not indicate any symptoms associated with coronavirus-19. Ebola Screen: No symptoms or risks identified at this time. Initial Sepsis Screen: Does the patient meet any 2 criteria? No. Patient's initial sepsis screen is negative. Does the patient have a suspected source of infection? No. Patient's initial sepsis screen is negative. Risk Assessment: Do you want to hurt yourself or someone else? Patient reports no desire to harm self or others. Onset of symptoms was January 15, 2023 at 16:15. Care prior to arrival: EKG NSR. 17:08 Method Of Arrival: EMS: [facility] vg1 17:08 Acuity: ROLAND 3 vg1 Triage Assessment: 17:10 General: Appears in no apparent distress. uncomfortable, Behavior is cooperative, vg1 anxious. Pain: Denies pain. Neuro: Level of Consciousness is awake, alert, obeys commands, Oriented to person, place, time, situation, Acquisition Cost Estimator are equal bilaterally Moves all extremities. Full function Speech is normal, Facial symmetry appears normal. Historical: - Allergies: 17:10 No Known Allergies; vg1 - Home Meds: 17:10 None [Active]; vg1 - PMHx: 17:10 Hypertension; insomnia; Sleep Apnea; vg1 - PSHx: 17:10 Gastric Sleeve; vg1 - Immunization history:: Adult Immunizations unknown. - Social history:: Smoking status: Patient reports the use of cigarette tobacco products. - Family history:: not pertinent. Screenin:04 [facility] ED Fall Risk Assessment (Adult) History of falling in the last 3 months, vg1 including since admission No falls in past 3 months (0 pts). Abuse screen: Denies threats or abuse. Denies injuries from another. Nutritional screening: No deficits noted. Tuberculosis screening: No symptoms or risk factors identified. Assessment: 17:04 General: Appears in no apparent distress. uncomfortable, Behavior is calm, cooperative. vg1 Pain: Denies pain. Complains of pain in chest and abdomen Pain radiates to left arm Pain began today at 1615. Neuro: Level of Consciousness is awake, alert, obeys commands, Oriented to person, place, time, situation, Acquisition Cost Estimator are equal bilaterally Moves all extremities. Speech is normal, Facial symmetry appears normal, Reports numbness in left arm paresthesias. Cardiovascular: Patient's skin is warm and dry. Respiratory: Airway is patent Respiratory effort is even, unlabored. GI: No signs and/or symptoms were reported involving the gastrointestinal system. : No signs and/or symptoms were reported regarding the genitourinary system. EENT: No signs and/or symptoms were reported regarding the EENT system. Derm: Skin is clammy. Musculoskeletal: 18:18 Reassessment: Patient appears in no apparent distress at this time. Patient and/or vg1 family updated on plan of care and expected duration. Pain level reassessed. Patient is alert, oriented x 3, equal unlabored respirations, skin warm/dry/pink. Vital Signs: 17:06 BP 146 / 89; Pulse 90; Resp 16; Pulse Ox 100% on R/A; vg1 17:08 Weight 131.09 kg; Height 6 ft. 2 in. ; vg1 18:16 BP 124 / 79; Pulse 74; Resp 16; Pulse Ox 100% on R/A; mb9 17:08 Body Mass Index 37.11 (131.09 kg, 187.96 cm) vg1 ED Course: 17:04 Patient arrived in ED. jl7 17:04 Delmis Araujo, RN is Primary Nurse. vg1 17:04 No provider procedures requiring assistance completed. Patient maintains SpO2 vg1 saturation greater than 95% on room air. 17:04 Patient has correct armband on for positive identification. Placed in gown. Bed in low vg1 position. Call light in reach. Side rails up X2. Client placed on continuous cardiac and pulse oximetry monitoring. NIBP monitoring applied. 17:05 Dora Melendez FNP-C is PHCP. snw 17:05 Tom Montalvo DO is Attending Physician. snw 17:05 Inserted saline lock: 20 gauge in left antecubital area, using aseptic technique. Blood zm collected. 17:06 Arm band placed on. vg1 17:08 Dennis Moeller MD is Attending Physician. snw 17:10 Triage completed. vg1 18:01 CT Head Brain wo Cont In Process Unspecified. EDMS 19:00 IV discontinued, intact, bleeding controlled, No redness/swelling at site. Pressure vg1 dressing applied. Administered Medications: 17:20 Drug: NS 0.9% IV 1000 ml Route: IV; Rate: 1 bolus; Site: left antecubital; vg1 19:00 Follow up: IV Status: Completed infusion; IV Intake: 1000ml vg1 Medication: 17:04 VIS not applicable for this client. vg1 Intake: 19:00 IV: 1000ml; Total: 1000ml. vg1 Outcome: 18:48 Discharge ordered by . rt 19:00 Discharged to home ambulatory, with family. vg1 19:00 Condition: good 19:00 Discharge instructions given to patient, Instructed on discharge instructions, follow up and referral plans. Demonstrated understanding of instructions, follow-up care. 19:00 Patient left the ED. vg1 Signatures: Dispatcher [employer] EDMS Dora Melendez, UNIT NURSE-C UNIT NURSE-Csnw Candice Baires RN RN jl7 Delmis Araujo RN RN vg1 Dasha Hernandez Mary Beth, RN RN mb9 Dennis Moeller MD MD rt
[2023-01-15 19:23] VITALS: O2SAT 100
[2023-01-15 19:25] VITALS: BP 124/79
--- NOTE | 2023-01-16 12:30 | EKG ---
Test Date: 2023-01-15 Test Time: 17:23:27 [facility] Vat Worker: DAVID MEASUREMENT RESULTS: Intervals: Rate: 75 [place]: 160 QRSD: 90 QT: 374 QTc: 417 [place]: P: 17 [place]: 160 QRS: 27 T: 13 INTERPRETIVE STATEMENTS: Normal sinus rhythm Normal ECG Compared to ECG 11/01/2022 17:50:44 No significant changes Electronically Signed On 01-16-23 12:29:18 CDT by Nikolai Rubio
== END 2023-01-15 19:00 | disposition home or self-care (01) ==
LOC: ER 16:58
DX: R20.2 Paresthesia of skin (principal); R07.89 Other chest pain; F17.210 Nicotine dependence, cigarettes, uncomplicated
CPT/HCPCS: 96361; 93005; 85025; 80048; 36415; 83735; 80076; 84484; 70450; 96360; 99285; J7030

== ENCOUNTER 2023-03-18 21:44 | Emergency (ER) | payer BC ==
--- OUTSIDE RECORDS SUMMARY | 2023-03-18 21:47 | XMS REPORT | Continuity of Care Document ---
:1985 Author Organization [facility] t Address [address] [place] [address] Care Team Providers Name Role Phone DONNA LANIER Attending Clinician Unavailable VEE Attending Clinician Unavailable Jerome Montemayor Attending Clinician [phone] DONNA LANIER Admitting Clinician Unavailable VEE Admitting Clinician Unavailable Payers Payer Name Policy Type Policy Number Effective Date Expiration Date Nader finesse [place] [id number] 2020 00:00:00 [place] ([place] Problems Condition Condition Condition Status Onset Resolution Last Treating Co mments Source Name Details Category Date Date Treatment Clinician Date Hypertensi Hypertensi Problem Active S weeny ve ve 08-09 Communi disorder Disorder 00:00: ty [facility] Clinics Sleep Sleep Problem Active [place] apnea Apnea 08-09 Communi 00:00: ty [facility]ospita Clin[facility] Fatigue Fatigue Problem Active [place] 08-09 [facility] Tachycardi Tachycardi Problem Active S weeny a a 08-09 Communi 00:00: ty [facility] Body mass Body Mass Problem Active [place] toni index 40+ Index 40+ 1-26 Comm uni - severely - Severely 00:00: ty obese Obese 00 [facility] Pityriasis Pityriasis Problem Active S jax versicolor Versicolor 08-09 Co mmuni 00:00: ty 00 [facility] Allergies, Adverse Reactions, Alerts This patient has no known allergies or adverse reactions. Social History Smoking Status Start Date Stop Date Source Heavy Tobacco Smoker [facility] Medications Ordered Filled Start Stop Current Ordering Indication Dosage Frequency Signature Comments Components Source Medication Medication Date Date Medication? Clinician (SIG) Name Name metoprolol metoprolol No 1 Q1D metoprolol [place] succinate succinate succinate Communi ER 25 mg [...] Source BP Diastolic 2020-08-09 00:00:00 98 mm[Hg] [facility] Height 2020-08-09 00:00:00 74 [in_i] [facility] BMI (Body Mass 2020-08-09 00:00:00 45.3 kg/m2 [facility] Index) [facility] s BP Systolic 2020-08-09 00:00:00 148 mm[Hg] [facility] Body Weight 2020-08-09 00:00:00 5648 [oz_av] [facility] Procedures This patient has no known procedures. Plan of Care Planned Activity Planned Date Details Comments Source Diagnostic Test 2020-08-09 CMP, serum [facility] Pending 00:00:00 plasma [code = Hospital Clin ics CMP, serum or plasma] Diagnostic Test 2020-08-09 CBC w/ auto diff [facility] Pending 00:00:00 [code = CBC w/ Hospital Clin ics auto diff] Diagnostic Test 2020-08-09 lipid panel, serum [facility] Pending 00:00:00 [code = lipid [facility] Clini cs panel, serum] Diagnostic Test 2020-08-09 TSH, serum or [facility] Pending 00:00:00 plasma [code = Hospital Clin [...] [facility] 2022-10-10 2022-10-10 Outpatient MARYJO LANIER MICKI [id number] [facility]BL 06:01:00 09:03:00 OBONORUMA 2022-08-02 2022-08-02 Outpatient ERICKSON_R [facility] 1006 [place] 00:00:00 00:00:00 0119 [facility] i [facility] Clin[facility] 2022-07-17 2022-07-17 Outpatient ERICKSON_R [facility] 1006 [place] 00:00:00 00:00:00 0103 Commun i ty [facility] Clinics 2020-08-15 2020-08-15 Outpatient ERICKSON_R [facility] 1006 [place] 11:44:00 11:44:00 0201 Commun i ty [facility]ospita [facility] Clinics 2020-08-09 2020-08-09 Outpatient ERICKSON_R [facility] 1006 [place] 05:15:00 05:15:00 0126 Commun i ty Hospita l Clinics 2020-08-09 2020-08-09 Outpatient Rl [facility] [id number] 00:00:00 00:00:00 Jerome [id number] Juancho [id number] 2020-08-09 2020-08-09 Jerome [facility] [place] 00:00:00 00:00:00 Juancho Dickerson [facility] DO: [address] [facility] [address] [place] [phone] RL , Ph. 2020-08-05 2020-08-05 Outpatient VEE [facility] 1006 [place] 03:59:00 03:59:00 0122 [facility] Results This patient has no known results.
[2023-03-18 22:32] LABS: Absolute Lymphocytes (CBC) 0.7 K/uL (0.7-4.9); Hematocrit 48.7 % (39.6-49.0); Lymphocytes % 6.2 % (15.3-44.8); MCV 90.7 fL (80-100); MPV 7.7 fL (7.6-11.3); Platelets 177 thou/uL (152-406); RBC Red Blood Cell Count 5.37 M/uL (4.33-5.43)
[2023-03-18 22:36] LABS: Protime INR 1.24
[2023-03-18] MEDS ORDERED: PANTOPRAZOLE 40 MG INJ ONE (22:37)
[2023-03-18] MEDS ORDERED: NA CHLORIDE 0.9% 1,000 ML ONE (22:37)
[2023-03-18] MEDS ORDERED: ONDANSETRON 4 MG/2 ML VIAL ONE (22:37)
[2023-03-18] MEDS ORDERED: ACETAMINOPHEN 500 MG TAB ONE (22:37)
[2023-03-18 22:47] LABS: Albumin 4.5 g/dL (3.4-5.0); Bilirubin Total 0.7 mg/dL (0.2-1.0); Potassium 3.9 mEq/L (3.5-5.1); Protein, Total 8.3 g/dL (6.4-8.2)
[2023-03-18 22:58] LABS: Specific Gravity 1.011 (1.005-1.030); Urine Bilirubin NEGATIVE (Negative); Urine Blood Negative (Negative); Urine Clarity Clear (Clear); Urine Color Light-Yellow (Yellow); Urine Glucose NEGATIVE (Negative); Urine Protein NEGATIVE (Negative); Urine Urobilinogen Normal (Normal)
[2023-03-19 00:27] LABS: Blood Morphology Comment NOT SEEN (NOT SEEN); Platelet Estimate ADEQ
[2023-03-19] MEDS ORDERED: NA CHLORIDE 0.9% 1,000 ML ONE (01:51)
[2023-03-19] MEDS ORDERED: NA CHLORIDE 0.9% 100 ML ONE (02:03)
[2023-03-19] MEDS ORDERED: PIPERACIL/TAZO 3.375 GM VIAL IV ONE (02:04)
--- NOTE | 2023-03-19 02:09 | ER ---
[facility] Name: Ghassan Dumas Age: 38 yrs Sex: Male : 1985 Arrival Date: 03/18/2023 Time: 21:44 Bed 20 Private MD: Dusty Freire Diagnosis: Diverticulitis of large intestine without perforation or abscess without bleeding Presentation: 03/18 22:07 Chief complaint: Patient states: seen at urgent care on Saturday for cough/congestion. lg3 all swabs were negative. woke up last night around 0000 with excruciating abdominal pains 10/10, body aches, crams and nausea. Coronavirus screen: Client denies travel out of the [place] in the last 14 days. Client presents with at least one sign or symptom that may indicate coronavirus-19. Standard/surgical mask placed on the client. Ebola Screen: No symptoms or risks identified at this time. Initial Sepsis Screen: Does the patient meet any 2 criteria? Temp <36.0*C (96.8*F)) or > 38.3*C (100.9*F). HR > 90 bpm. Yes Does the patient have a suspected source of infection? Yes: Productive cough/pneumonia Acute abdominal pain. Risk Assessment: Do you want to hurt yourself or someone else? Patient reports no desire to harm self or others. Onset of symptoms was March 15, 2023. 22:07 Method Of Arrival: Ambulatory lg3 22:07 Acuity: ROLAND 3 lg3 Triage Assessment: 22:12 General: Appears in no apparent distress. uncomfortable, Behavior is calm, cooperative. lg3 Pain: Complains of pain in abdomen. EENT: No deficits noted. No signs and/or symptoms were reported regarding the EENT system. Neuro: No deficits noted. Rodriguez Agitation-Sedation Scale (RASS): 0 - Alert and Calm Level of Consciousness is awake, alert, obeys commands, Oriented to person, place, time, situation. Cardiovascular: No deficits noted. Denies chest pain, shortness of breath, Capillary refill < 3 seconds Clubbing of nail beds is absent JVD is absent Patient's skin is warm and dry. Respiratory: No deficits noted. Airway is patent Respiratory effort is even, unlabored, Respiratory pattern is regular, symmetrical. GI: No deficits noted. Abdomen is round non-distended, Reports lower abdominal pain, upper abdominal pain, cramping, nausea. : No deficits noted. No signs and/or symptoms were reported regarding the genitourinary system. Derm: No deficits noted. No signs and/or symptoms reported regarding the dermatologic system. Skin is intact, is healthy with good turgor, Skin is dry, Skin is normal, Skin temperature is warm. Musculoskeletal: No deficits noted. Circulation, motion, and sensation intact. Range of motion: intact in all extremities, Reports generalized body aches. Historical: - Allergies: 22:09 No Known Allergies; lg3 - Home Meds: 22:09 Ambien Oral [Active]; lg3 - PMHx: 22:09 Hypertension; insomnia; Sleep Apnea; Diverticulitis; lg3 - PSHx: 22:09 gastric sleeve; lg3 - Immunization history:: Adult Immunizations up to date, Client reports receiving the 2nd dose of the Covid vaccine. - Social history:: Smoking status: Reported history of juuling and/or vaping. Patient uses alcohol, but reports only rare drinking. Screenin:34 [facility] ED Fall Risk Assessment (Adult) History of falling in the last 3 months, jw7 including since admission No falls in past 3 months (0 pts) Score/Fall Risk Level 0 - 2 = Low Risk. Abuse screen: Denies threats or abuse. Denies injuries from another. Nutritional screening: No deficits noted. Tuberculosis screening: No symptoms or risk factors identified. Assessment: 22:10 General: see triage assessment. jw7 23:00 Reassessment: Patient appears in no apparent distress at this time. No changes from jw7 previously documented assessment. Patient and/or family updated on plan of care and expected duration. Pain level reassessed. Patient is alert, oriented x 3, equal unlabored respirations, skin warm/dry/pink. 03/19 00:08 Reassessment: Patient appears in no apparent distress at this time. No changes from jw7 previously documented assessment. Patient and/or family updated on plan of care and expected duration. Pain level reassessed. Patient is alert, oriented x 3, equal unlabored respirations, skin warm/dry/pink. 01:42 Reassessment: Patient appears in no apparent distress at this time. No changes from jw7 previously documented assessment. Patient and/or family updated on plan of care and expected duration. Pain level reassessed. Patient is alert, oriented x 3, equal unlabored respirations, skin warm/dry/pink. 02:11 General: discharge waiting on IV antibiotic to finish. jw7 03:19 Reassessment: Patient appears in no apparent distress at this time. No changes from jw7 previously documented assessment. Patient and/or family updated on plan of care and expected duration. Pain level reassessed. Patient is alert, oriented x 3, equal unlabored respirations, skin warm/dry/pink. Vital Signs: 03/18 22:07 BP 148 / 97; Pulse 106; Resp 16; Temp 101.3(O); Pulse Ox 100% on R/A; Weight 120.2 kg pf1 (R); Height 6 ft. 2 in. (R); 22:45 BP 130 / 72; Pulse 83; Resp 16; Temp 98.5; Pulse Ox 99% on R/A; pf1 23:00 BP 130 / 72; Pulse 84; Resp 15 S; Pulse Ox 99% on R/A; jw7 03/19 00:08 BP 101 / 63; Pulse 86; Resp 15 S; Pulse Ox 98% on R/A; jw7 01:00 BP 121 / 74; Pulse 72; Resp 15 S; Pulse Ox 97% on R/A; jw7 02:16 BP 118 / 77; Pulse 73; Resp 13 S; Pulse Ox 97% on R/A; jw7 03:00 BP 103 / 53; Pulse 71; Resp 15 S; Pulse Ox 97% on R/A; jw7 03/18 22:07 Body Mass Index 34.02 (120.20 kg, 187.96 cm) pf1 ED Course: 03/18 21:46 Patient arrived in ED. mr 21:47 Dusty Freire MD is Private Physician. mr 21:51 [facility]. cp 21:52 Dominick Esparza MD is Attending Physician. cp 22:09 Triage completed. lg3 22:12 Arm band placed on right wrist. lg3 22:29 Influenza Screen (a \T\ B) Sent. bc6 22:29 COVID-19 SARS RT PCR Sent. bc6 22:29 Blood Culture Adult (2) Sent. bc6 22:29 CBC with Diff Sent. bc6 22:29 CMP Sent. bc6 22:29 Lactate w/ 2H reflex if indic. Sent. bc6 22:29 Protime (+inr) Sent. bc6 22:29 Ptt, Activated Sent. bc6 22:29 Inserted saline lock: 22 gauge in right antecubital area, using aseptic technique. bc6 Blood collected. 22:33 Ranjana Lynn RN is Primary Nurse. jw7 22:35 Patient has correct armband on for positive identification. Bed in low position. Call [facility] light in reach. 22:52 No provider procedures requiring assistance completed. pf1 22:52 Influenza Screen (a \T\ B) Sent. pf1 22:52 COVID-19 SARS RT PCR Sent. pf1 22:52 Blood Culture Adult (2) Sent. pf1 22:52 CBC with Diff Sent. pf1 22:52 Urinalysis w/ reflexes Sent. pf1 23:34 CT Abd/Pelvis - IV Contrast Only In Process Unspecified. EDNY 03/19 01:07 Chest Single View XRAY In Process Unspecified. EDNY 03:19 Provided Education on: discharge instructions and medications. jw7 03:19 IV discontinued, intact, bleeding controlled, No redness/swelling at site. Pressure jw7 dressing applied. Administered Medications: 03/18 22:50 Drug: Acetaminophen PO 1000 mg Route: PO; pf1 03/19 01:38 Follow up: Response: No adverse reaction jw7 03/18 22:58 Drug: NS 0.9% IV 1000 ml Route: IV; Rate: 1 bolus; Site: right antecubital; jw7 03/19 00:00 Follow up: Response: No adverse reaction; Marked relief of symptoms; IV Status: pf1 Completed infusion; IV Intake: 1000ml 03/18 22:59 Drug: Ondansetron IVP 4 mg Route: IVP; Site: right antecubital; jw7 03/19 00:48 Follow up: Response: No adverse reaction jw7 03/18 22:59 Drug: Pantoprazole IVP 40 mg Route: IVP; Site: right antecubital; jw7 03/19 00:48 Follow up: Response: No adverse reaction jw7 01:46 Drug: NS 0.9% IV 1000 ml Route: IV; Rate: 1 bolus; Site: right antecubital; jw7 02:40 Follow up: Response: No adverse reaction; Marked relief of symptoms; IV Status: pf1 Completed infusion; IV Intake: 1000ml 02:12 Drug: Piperacillin-Tazobactam IVPB 3.375 grams Route: IVPB; Infused Over: 60 mins; jw7 Site: right antecubital; 03:12 Follow up: Response: No adverse reaction; Marked relief of symptoms; IV Status: pf1 Completed infusion; IV Intake: 100ml 02:12 Drug: Ketorolac IVP 15 mg Route: IVP; Site: right antecubital; jw7 03:09 Follow up: Response: No adverse reaction; Marked relief of symptoms; Pain is decreased pf1 02:12 Drug: fentaNYL (PF) IVP 25 mcg Route: IVP; Site: right antecubital; jw7 03:08 Follow up: Response: No adverse reaction; Marked relief of symptoms; Pain is decreased pf1 Medication: 03:19 VIS not applicable for this client. jw7 Intake: 00:00 IV: 1000ml; Total: 1000ml. pf1 02:40 IV: 1000ml; Total: 2000ml. pf1 03:12 IV: 100ml; Total: 2100ml. pf1 Outcome: 02:09 Discharge ordered by . jonah 03:19 Discharged to home ambulatory. jw7 03:19 Condition: stable 03:19 Discharge instructions given to patient, Instructed on discharge instructions, follow up and referral plans. medication usage, Demonstrated understanding of instructions, follow-up care, medications, Prescriptions given X 3. 03:21 Patient left the ED. jw7 Signatures: Dispatcher [employer] EDNY Erwin Cindy Dominick Napoles PA PA cp Gibson, Lacie, RN RN lg3 Ranjana Lynn RN RN jw7 Desiree Narvaez RN RN pf1 Jena Neves 6 Corrections: (The following items were deleted from the chart) 03/18 22:35 22:35 General: see triage assessment. jw7 jw7 22:52 22:07 BP 148 / 97; Pulse 106bpm; Pulse Ox 100% RA; Temp 101.3F Oral; 120.2 kg Reported; pf1 Height 6 ft. 2 in. Reported; BMI: 34.0; lg3
--- NOTE | 2023-03-19 02:09 | EDPHYS ---
Physician Documentation [facility] Name: Ghassan Dumas Age: 38 yrs Sex: Male : 1985 Arrival Date: 03/18/2023 Time: 21:44 Bed 20 Private MD: Dusty Freire ED Physician Dominick Esparza HPI: 03/18 22:20 This 38 yrs old Male presents to ER via Ambulatory with complaints of Abdominal Pain. cp 22:20 The patient presents with abdominal pain mid abdomen. Onset: The symptoms/episode cp began/occurred this morning. The symptoms do not radiate. Associated signs and symptoms: Pertinent positives: fever, Pertinent negatives: blood in stools, chest pain, constipation, diarrhea, shortness of breath, vomiting. The symptoms are described as waxing/waning. Severity of pain: in the emergency department the pain has improved. Historical: - Allergies: 22:09 No Known Allergies; lg3 - Home Meds: 22:09 Ambien Oral [Active]; lg3 - PMHx: 22:09 Hypertension; insomnia; Sleep Apnea; Diverticulitis; lg3 - PSHx: 22:09 gastric sleeve; lg3 - Immunization history:: Adult Immunizations up to date, Client reports receiving the 2nd dose of the Covid vaccine. - Social history:: Smoking status: Reported history of juuling and/or vaping. Patient uses alcohol, but reports only rare drinking. ROS: 22:25 Cardiovascular: Negative for chest pain, edema, palpitations. cp 22:25 Eyes: Negative for injury, pain, redness, and discharge. cp 22:25 Constitutional: Positive for fever, Negative for poor PO intake. 22:25 ENT: Negative for drainage from ear(s), ear pain, difficulty swallowing, difficulty handling secretions. 22:25 Respiratory: Positive for cough, Negative for shortness of breath, wheezing. 22:25 Abdomen/GI: Positive for abdominal pain, nausea, Negative for vomiting, diarrhea, constipation, black/tarry stool, rectal bleeding. 22:25 Back: Negative for injury or acute deformity, pain with movement, radiated pain. 22:25 Skin: Negative for rash. 22:25 Neuro: Negative for altered mental status, dizziness, headache, weakness. 22:25 All other systems are negative. Exam: 22:30 Constitutional: The patient appears in no acute distress, alert, awake, cp non-diaphoretic, non-toxic, well developed, well nourished, febrile, uncomfortable. 22:30 Head/Face: Normocephalic, atraumatic. cp 22:30 Eyes: Periorbital structures: appear normal, Conjunctiva: normal, no exudate, no injection, Sclera: no appreciated abnormality, Lids and lashes: appear normal, bilaterally. 22:30 ENT: External ear(s): are unremarkable, Nose: is normal, Mouth: Lips: moist, Oral mucosa: pink and intact, moist, Posterior pharynx: is normal, airway is patent, no erythema, no exudate. 22:30 Neck: ROM/movement: is normal, is supple, without pain, no range of motions limitations, no meningismus, no nuchal rigidity. 22:30 Chest/axilla: Inspection: normal, Palpation: is normal, no crepitus, no tenderness. 22:30 Cardiovascular: Rate: tachycardic, Rhythm: regular. 22:30 Respiratory: the patient does not display signs of respiratory distress, Respirations: normal, no use of accessory muscles, no retractions, labored breathing, is not present, Breath sounds: are clear throughout, no decreased breath sounds, no stridor, no wheezing. 22:30 Abdomen/GI: Inspection: abdomen appears normal, Bowel sounds: active, all quadrants, Palpation: moderate abdominal tenderness, in the mid abdomen. 22:30 Back: CVA tenderness, is absent. 22:30 Skin: no rash present. 22:30 Neuro: Orientation: to person, place \T\ time. Mentation: is normal, Motor: moves all fours, strength is normal, Sensation: is normal. 22:47 ECG was reviewed by the Attending Physician. cp Vital Signs: 22:07 BP 148 / 97; Pulse 106; Resp 16; Temp 101.3(O); Pulse Ox 100% on R/A; Weight 120.2 kg pf1 (R); Height 6 ft. 2 in. (R); 22:45 BP 130 / 72; Pulse 83; Resp 16; Temp 98.5; Pulse Ox 99% on R/A; pf1 23:00 BP 130 / 72; Pulse 84; Resp 15 S; Pulse Ox 99% on R/A; 7 03/19 00:08 BP 101 / 63; Pulse 86; Resp 15 S; Pulse Ox 98% on R/A; jw7 01:00 BP 121 / 74; Pulse 72; Resp 15 S; Pulse Ox 97% on R/A; 7 02:16 BP 118 / 77; Pulse 73; Resp 13 S; Pulse Ox 97% on R/A; 7 03:00 BP 103 / 53; Pulse 71; Resp 15 S; Pulse Ox 97% on R/A; [facility] 03/18 22:07 Body Mass Index 34.02 (120.20 kg, 187.96 cm) pf1 MDM: 03/18 21:57 Patient medically screened. 03/19 02:08 Data reviewed: vital signs, nurses notes, lab test result(s), EKG, radiologic studies, cp CT scan, plain films. 02:08 Differential diagnosis: appendicitis, bowel obstruction, cholecystitis, Cholelithiasis, cp diverticulitis, non-specific abd pain, pancreatitis, Pyelonephritis, Ureterolithiasis, urinary tract infection. Consideration of Admission/Observation Escalation of care including admission/observation considered. I considered the following discharge prescriptions or medication management in the emergency department Medications were administered in the Emergency Department. See MAR. Counseling: I had a detailed discussion with the patient and/or guardian regarding the historical points, exam findings, and any diagnostic results supporting the discharge/admit diagnosis, lab results, radiology results, to return to the emergency department if symptoms worsen or persist or if there are any questions or concerns that arise at home. Response to treatment: the patient's symptoms have markedly improved after treatment, patient is well hydrated. VSS. Pain improved, and as a result, I will discharge patient. 03/18 22:16 Order name: Blood Culture Adult (2) 03/18 22:16 Order name: CBC with Diff; Complete Time: 00:30 03/19 00:30 Interpretation: Normal except: WBC 11.20; CORAZON% 89.0; LYM% 6.2; NEUT A 10.0. 03/18 22:16 Order name: CMP; Complete Time: 22:59 03/18 23:00 Interpretation: Normal except: NA 135; TP 8.3; GLOB 3.8. 03/18 22:16 Order name: Lactate w/ 2H reflex if indic.; Complete Time: 22:59 03/18 23:00 Interpretation: LAC 1.6; Reviewed. 03/18 22:16 Order name: Protime (+inr); Complete Time: 22:59 cp / 00:31 Interpretation: PT 13.6; Reviewed. 03/18 22:16 Order name: Ptt, Activated; Complete Time: 22:59 cp 03/18 22:16 Order name: Urinalysis w/ reflexes; Complete Time: 23:00 cp 03/18 23:00 Interpretation: Normal except: UPH 8.0. 03/18 22:16 Order name: COVID-19 SARS RT PCR; Complete Time: 00:30 cp 03/19 00:30 Interpretation: Reviewed. 03/18 22:16 Order name: Influenza Screen (a \T\ B); Complete Time: 00:30 cp 03/19 00:30 Interpretation: Reviewed. 03/18 22:43 Order name: Glucose, Ancillary Testing; Complete Time: 22:59 EDMS 03/18 23:03 Order name: Manual Differential; Complete Time: 00:30 EDMS 03/19 00:30 Interpretation: Normal except: SEGS 88; LYM 4. / 22:16 Order name: Chest Single View XRAY 03/18 23:01 Order name: CT Abd/Pelvis - IV Contrast Only 03/18 22:16 Order name: EKG; Complete Time: 22:16 03/18 22:16 Order name: Accucheck; Complete Time: 22:31 03/18 22:16 Order name: Cardiac monitoring; Complete Time: 22:52 / 22:16 Order name: EKG - Nurse/Tech; Complete Time: 22:52 03/18 22:16 Order name: IV Saline Lock - Large Bore; Complete Time: 22:23 03/18 22:16 Order name: Labs collected and sent; Complete Time: 22:29 03/18 22:16 Order name: O2 Per Protocol; Complete Time: 22:23 cp / 22:16 Order name: O2 Sat Monitoring; Complete Time: 22:23 03/18 22:16 Order name: Vital Signs; Complete Time: 22:54 cp / 01:49 Order name: PO challenge; Complete Time: 02:16 cp EC/04 22:47 Rate is 81 beats/min. Rhythm is regular. WA interval is normal. QRS interval is normal. cp QT interval is normal. T waves are Inverted in lead aVR. Interpreted by me. Reviewed by me. Administered Medications: 22:50 Drug: Acetaminophen PO 1000 mg Route: PO; pf1 03/19 01:38 Follow up: Response: No adverse reaction 7 03/18 22:58 Drug: NS 0.9% IV 1000 ml Route: IV; Rate: 1 bolus; Site: right antecubital; 7 03/19 00:00 Follow up: Response: No adverse reaction; Marked relief of symptoms; IV Status: pf1 Completed infusion; IV Intake: 1000ml 03/18 22:59 Drug: Ondansetron IVP 4 mg Route: IVP; Site: right antecubital; jw7 03/19 00:48 Follow up: Response: No adverse reaction 7 03/18 22:59 Drug: Pantoprazole IVP 40 mg Route: IVP; Site: right antecubital; jw7 03/19 00:48 Follow up: Response: No adverse reaction jw7 01:46 Drug: NS 0.9% IV 1000 ml Route: IV; Rate: 1 bolus; Site: right antecubital; jw7 02:40 Follow up: Response: No adverse reaction; Marked relief of symptoms; IV Status: pf1 Completed infusion; IV Intake: 1000ml 02:12 Drug: Piperacillin-Tazobactam IVPB 3.375 grams Route: IVPB; Infused Over: 60 mins; jw7 Site: right antecubital; 03:12 Follow up: Response: No adverse reaction; Marked relief of symptoms; IV Status: pf1 Completed infusion; IV Intake: 100ml 02:12 Drug: Ketorolac IVP 15 mg Route: IVP; Site: right antecubital; jw7 03:09 Follow up: Response: No adverse reaction; Marked relief of symptoms; Pain is decreased pf1 02:12 Drug: fentaNYL (PF) IVP 25 mcg Route: IVP; Site: right antecubital; jw7 03:08 Follow up: Response: No adverse reaction; Marked relief of symptoms; Pain is decreased pf1 Disposition Summary: 03/19/23 02:09 Discharge Ordered Location: Home cp Problem: new cp Symptoms: have improved cp Condition: Stable cp Diagnosis - Diverticulitis of large intestine without perforation or abscess without bleeding cp Followup: cp - With: Private Physician - When: 2 - 3 days - Reason: Recheck today's complaints Discharge Instructions: - Discharge Summary Sheet cp - High-Fiber Eating Plan cp - Diverticulitis cp Forms: - Medication Reconciliation Form cp - Thank You Letter cp - Antibiotic Education cp - Prescription Opioid Use cp - Patient Portal Instructions cp - Leadership Thank You Letter cp - Work release form pf1 Prescriptions: - Augmentin 875-125 mg Oral Tablet - take 1 tablet by ORAL route every 12 hours for 10 days; 20 tablet; Refills: 0, cp Product Selection Permitted - Zofran 4 mg Oral Tablet - take 1 tablet by ORAL route every 12 hours As needed; 20 tablet; Refills: 0, cp Product Selection Permitted - dicyclomine 20 mg Oral Tablet - take 1 tablet by ORAL route 4 times per day; 30 tablet; Refills: 0, Product cp Selection Permitted Signatures: Dispatcher [employer] EDDominick Mcclelland PA PA cp Gibson, Lacie, RN RN lg3 Ranjana Lynn RN RN jw7 Desiree Narvaez RN RN pf1
[2023-03-19] MEDS ORDERED: FENTANYL CITR 100 MCG/2 ML ONE (02:12)
[2023-03-19] MEDS ORDERED: KETOROLAC 30 MG/ML INJ ONE (02:13)
[2023-03-19 03:51] VITALS: TEMP 98.5
[2023-03-19 03:54] VITALS: O2SAT 97
[2023-03-19 03:57] VITALS: BP 103/53
--- NOTE | 2023-03-19 16:45 | EKG ---
Test Date: 2023-03-18 Test Time: 22:42:56 University Lecturer: VICTORIANO MEASUREMENT RESULTS: Intervals: Rate: 81 NE: 150 QRSD: 92 QT: 344 QTc: 399 [place]: P: 36 NE: 150 QRS: 46 T: 57 INTERPRETIVE STATEMENTS: Normal sinus rhythm Normal ECG Compared to ECG 01/15/2023 17:23:27 No significant changes Electronically Signed On 03-19-23 16:42:28 CDT by Nikolai Rubio
== END 2023-03-19 03:21 | disposition home or self-care (01) ==
LOC: ER 21:44
DX: K57.32 Diverticulitis of large intestine without perforation or abscess without bleeding (principal); I10 Essential (primary) hypertension; G47.00 Insomnia, unspecified; G47.30 Sleep apnea, unspecified; Z20.822 Contact with and (suspected) exposure to COVID-19; Z98.84 Bariatric surgery status
CPT/HCPCS: 96365; 96361; 93005; 87040 ×2; 85025; 36415; 85610; 82947; 83605; 85730; 81003; 80053; 87635; 87804 ×2; 74177; 71045; 96375; 99284; Q9967; J2543; C9113; J3010; J2405; J7030 ×2